=== PATIENT | female | born 1950 | race African-American/Black ===

== ENCOUNTER 2020-01-25 16:29 | Emergency (ER) | payer SELFPAY ==
--- NOTE | 2020-01-25 17:35 | ER Document Report ---
HPI - HPI Time Seen by Provider: 01/25/20 17:31 Course - Vital Signs Vital signs: Temp Pulse Resp BP Pulse Ox 98.0 F 108 H 20 147/93 H 95 01/25/20 16:38 01/25/20 16:38 01/25/20 16:38 01/25/20 16:38 01/25/20 16:38
--- NOTE | 2020-01-25 17:39 | ER Document Report ---
ED Medical Screen (RME) - General Chief Complaint: Congestion Stated Complaint: CONGESTION Time Seen by Provider: 01/25/20 17:31 - HPI Notes: 01/25/20 18:07 69-year-old female presents to the emergency room with feeling like her heart is been skipping after she stopped drinking a sixpack of 20 ounces of Pepsi last week, reports congestion and pressure in her nose of and difficulty breathing she has to wear her mask while working. patient denies having a history of irregular heart rate, palpitations. Non-smoker, no history of asthma or COPD. Denies any chest pain. patient states that it is hard for her to breathe while she is wearing a mask at work. Patient states she stopped drinking all caffeine, chocolate and switched to just drinking water 2 weeks ago and states that she has been feeling very "off". No [id number] medications have been tried besides Sudafed. Patient denies any medical problems. I have greeted and performed a rapid initial assessment of this patient. A comprehensive ED assessment and evaluation of the patient, analysis of test results and completion of the medical decision making process will be conducted by additional ED providers. PHYSICAL EXAMINATION: GENERAL: Well-appearing, well-nourished and in no acute distress. HEAD: Atraumatic, normocephalic. CV: Irregularly irregular LUNGS: No respiratory distress Physical Exam - Vital signs Vitals: Temp Pulse Resp BP Pulse Ox 98.0 F 108 H 20 147/93 H 95 01/25/20 16:38 01/25/20 16:38 01/25/20 16:38 01/25/20 16:38 01/25/20 16:38 Course - Vital Signs Vital signs: Temp Pulse Resp BP Pulse Ox 98.0 F 108 H 20 147/93 H 95 01/25/20 16:38 01/25/20 16:38 01/25/20 16:38 01/25/20 16:38 01/25/20 16:38 - Laboratory Result Diagrams: 01/25/20 17:55 01/25/20 17:55
--- NOTE | 2020-01-25 18:01 | EKG REPORT ---
SEVERITY:- ABNORMAL ECG - SINUS TACHYCARDIA PROBABLE LEFT ATRIAL ABNORMALITY LEFT BUNDLE BRANCH BLOCK : Confirmed by: Sav Blake MD 25-Jan-2020 18:00:22
[2020-01-25 18:12] LABS: ABSOLUTE BASOPHILS # (AUTO) 0.1 10^3/uL (0.0-0.2); ABSOLUTE EOSINOPHILS # (AUTO) 0.1 10^3/uL (0.0-0.6); ABSOLUTE LYMPHOCYTES (AUTO) 1.8 10^3/uL (0.5-4.7); ABSOLUTE MONOCYTES (AUTO) 0.6 10^3/uL (0.1-1.4); ABSOLUTE NEUT (AUTO) 5.8 10^3/uL (1.7-8.2); BASOPHILS % (AUTO) 0.8 % (0-2); EOSINOPHILS % (AUTO) 0.7 % (0-6); HEMATOCRIT 42.2 % (36.0-47.0); HEMOGLOBIN 13.8 g/dL (12.0-15.5); MEAN CORPUSCULAR HEMOGLOBIN 28.2 pg (27.0-33.4); MEAN CORPUSCULAR HGB CONC 32.8 g/dL (32.0-36.0); MEAN CORPUSCULAR VOLUME 86 fl (80-97); MONOCYTES % (AUTO) 6.9 % (3-13); PLATELET COUNT 199 10^3/uL (150-450); RED CELL DISTRIBUTION WIDTH 15.3 % (11.5-14.0); SEGMENTED NEUTROPHILS % (AUTO) 69.6 % (42-78); TOTAL CELLS COUNTED % (AUTO) 100 %; WHITE BLOOD COUNT 8.3 10^3/uL (4.0-10.5)
[2020-01-25 18:28] LABS: ALBUMIN 4.6 g/dL (3.5-5.0); ALKALINE PHOSPHATASE 55 U/L (38-126); ANION GAP 11 (5-19); ASPARTATE AMINO TRANSFERASE 48 U/L (14-36); BILIRUBIN,DIRECT 0.3 mg/dL (0.0-0.4); BILIRUBIN,TOTAL 2.3 mg/dL (0.2-1.3); BLOOD UREA NITROGEN 16 mg/dL (7-20); CALCIUM 9.8 mg/dL (8.4-10.2); CARBON DIOXIDE 23 mmol/L (22-30); CHLORIDE 102 mmol/L (98-107); GLUCOSE 154 mg/dL (75-110); PHOSPHORUS 3.5 mg/dL (2.5-4.5); POTASSIUM 4.4 mmol/L (3.6-5.0)
--- NOTE | 2020-01-25 18:29 | ER Document Report ---
ED ENT - General Chief Complaint: Irregular Pulse Stated Complaint: CONGESTION Time Seen by Provider: 01/25/20 17:31 Primary Care Provider: IMANI IVEY MD [ACTIVE STAFF] - Follow up as needed Notes: 69-year-old female with no previous medical problems presents emergency room complaining of sinus congestion, postnasal drip for the past 2 weeks. She denies any fevers. She denies any recent travel. Denies any COVID-19 exposure. States she has been taking some Sudafed with some relief. No known ill contact s. TRAVEL OUTSIDE OF THE [place] IN LAST 30 DAYS: No Past Medical History - General Information source: Patient - Social History Smoking Status: Never Smoker Frequency of alcohol use: None Drug Abuse: None Family History: Reviewed & Not Pertinent Patient has homicidal ideation: No - Medical History Medical History: Negative Review of Systems - Review of Systems Constitutional: No symptoms reported EENT: Nose congestion, Sinus pressure Cardiovascular: No symptoms reported Respiratory: No symptoms reported Gastrointestinal: No symptoms reported Genitourinary: No symptoms reported Musculoskeletal: No symptoms reported Skin: No symptoms reported Hematologic/Lymphatic: No symptoms reported Neurological/Psychological: No symptoms reported -: Yes All other systems reviewed and negative Physical Exam - Vital signs Vitals: Temp Pulse Resp BP Pulse Ox 98.0 F 108 H 20 147/93 H 95 01/25/20 16:38 01/25/20 16:38 01/25/20 16:38 01/25/20 16:38 01/25/20 16:38 - General General appearance: Appears well, Alert In distress: Mild - HEENT Head: Normocephalic Eyes: Normal Conjunctiva: Normal Eyelashes: Normal Pupils: PERRL Ears: Normal External canal: Normal Tympanic membrane: Retracted, Other - Bilateral tympanic membranes are dull and retracted with clear fluid noted behind the tympanic membranes bilaterally Sinus: Frontal, Tenderness Nasal: Purulent discharge, Swelling Mouth/Lips: Normal Pharynx: Post nasal drainage. No: Erythema Neck: Normal, Supple. No: Lymphadenopathy, Meningismus - Respiratory Respiratory status: No respiratory distress Chest status: Nontender Breath sounds: Normal Chest palpation: Normal - Cardiovascular Rhythm: Tachycardia Heart sounds: Normal auscultation Murmur: No Friction rub: No - Neurological Neuro grossly intact: Yes Cognition: Normal Orientation: AAOx4 [place] Coma Scale Eye Opening: Spontaneous [place] Coma Scale Verbal: Oriented [place]ie Coma Scale Motor: Obeys Commands [place] Coma Scale Total: 15 Speech: Normal Motor strength normal: LUE, RUE, LLE, RLE Sensory: Normal - Skin Skin Temperature: Warm Skin Moisture: Dry Skin Color: Normal Course - Re-evaluation Re-evalutation: 01/25/20 19:54 Patient is resting comfortably she is afebrile, she is nontoxic-appearing, reviewed all lab results with patient. Patient did not initially tell provider she has been having palpitations that started last week after drinking several Pepsi's. Also has noticed palpitations after taking Sudafed. Currently denies any palpitations, chest pain, no shortness of breath, discussed EKG findings with patient. Patient denies any chest pain, no shortness of breath, no difficulty breathing. Will treat for acute sinusitis as discussed. She is to follow-up outpatient with a primary care physician on-call physician was provided. Patient was given strict return to the emergency room guidelines. Return for any new or worsening symptoms. All questions were answered. Patient verbalized understanding and agrees with plan of care. 01/26/20 01:15 - Vital Signs Vital signs: Temp Pulse Resp BP Pulse Ox 97.9 F 94 17 140/88 H 97 01/25/20 20:23 01/25/20 20:23 01/25/20 20:23 01/25/20 20:23 01/25/20 20:23 - Laboratory Result Diagrams: 01/25/20 17:55 01/25/20 17:55 Laboratory results interpreted by me: 01/25/20 01/25/20 17:55 17:55 RDW 15.3 H Sodium 135.6 L Glucose 154 H Total Bilirubin 2.3 H AST 48 H ALT 42 H - EKG Interpretation by Me Rate: Tachycardia [place]/QRS: LBBB Additional EKG results interpreted by me: 01/25/20 18:28 EKG was interpreted by ER physician Dr. Mayers EKG was interpreted by ER physician Dr. Mayers No acute STEMI Left bundle branch block Discharge - Discharge Clinical Impression: Palpitations, Left bundle branch block Acute sinusitis Qualifiers: Sinusitis location: frontal Recurrence: non-recurrent Qualified Code(s): J01.10 - Acute frontal sinusitis, unspecified Condition: Stable Disposition: HOME, SELF-CARE Instructions: Palpitations (Irregular or Rapid Heartrate) ([facility]), Sinusitis ([facility]) Additional Instructions: Take medications as prescribed. Outpatient follow-up with a primary care physician for palpitations and if not improving in 2 to 3 days. Return to the emergency room for any new or worsening symptoms. Prescriptions: Amoxicillin/Potassium Clav [Augmentin 875-125 Tablet] 1 tab PO Q12 #14 tablet Fluticasone Propionate [Flonase Nasal [place] 50 Mcg/[place] 16 gm] 2 sprays NASL DAILY 7 Days #1 inhaler Referrals: IMANI IVEY MD [ACTIVE STAFF] - Follow up as needed
[2020-01-25 20:25] VITALS: BP 140/88
== END 2020-01-25 20:32 | disposition home or self-care (01) ==
LOC: ER 16:29
DX: J01.10 Acute frontal sinusitis, unspecified (principal); R09.81 Nasal congestion; R09.82 Postnasal drip; R00.2 Palpitations; I44.7 Left bundle-branch block, unspecified; R00.0 Tachycardia, unspecified
CPT/HCPCS: 36415; 80053; 83735; 84100; 84443; 85025; 87070; 87880; 93005; 93010; 99283

== ENCOUNTER 2020-03-16 06:55 | Emergency (ER) | payer SELFPAY ==
--- NOTE | 2020-03-16 09:22 | ER Document Report ---
ED General - General Chief Complaint: Decreased Appetite Stated Complaint: LOSS OF TASTE AND APPETITE Time Seen by Provider: 03/16/20 08:59 Notes: CHIEF COMPLAINT: Sinus congestion, loss of taste HPI: 69-year-old female who reports no medical problems presenting for reevaluation of sinus congestion and loss of taste. Patient has had symptoms for approximately a month. States that she came to the emergency department and was told she had a sinus infection took the Augmentin but developed hives so stopped the medication after several days. Has been using Sudafed for sinus congestion but reports that 2 weeks ago she lost her sense of taste although she can smell and no longer has an appetite because of the loss of taste. Denies chest pain shortness of breath. Denies abdominal pain nausea vomiting. Denies dysuria. Has not had fever ROS: See HPI - all other systems were reviewed and are otherwise negative Constitutional: no fever Eyes: no drainage, no blurred vision ENT: + runny nose, no sore throat, positive loss of taste ([place]) Cardiovascular: no chest pain Resp: no SOB, no cough GI: no vomiting, no diarrhea, no abdominal pain : no dysuria Integumentary: no rash Allergy: no hives Musculoskeletal: no extremity pain or swelling Neurological: no numbness/tingling, no weakness MEDICATIONS: I agree with the patient medications as charted by the RN. ALLERGIES: I agree with the allergies as charted by the RN. PAST MEDICAL HISTORY/PAST SURGICAL HISTORY: Reviewed and agree as charted by RN. SOCIAL HISTORY: Reviewed and agree as charted by RN. FAMILY HISTORY: No significant familial comorbid conditions directly related to patient complaint EXAM: Reviewed vital signs as charted by RN. CONSTITUTIONAL: Alert and oriented and responds appropriately to questions. Well-appearing; well-nourished HEAD: Normocephalic; atraumatic EYES: PERRL; Conjunctivae clear, sclerae non-icteric ENT: normal nose; no rhinorrhea; moist mucous membranes; pharynx without lesions noted, no uvula edema or deviation, no tonsillar hypertrophy, phonation normal NECK: Supple without meningismus; non-tender; no cervical lymphadenopathy, no masses CARD: RRR; no murmurs, no clicks, no rubs, no gallops; symmetric distal pulses RESP: Normal chest excursion without splinting or tachypnea; breath sounds clear and equal bilaterally; no wheezes, no rhonchi, no rales, pulse oximetry ABD/GI: Normal bowel sounds; non-distended; soft, non-tender, no rebound, no guarding; no palpable organomegaly or masses. BACK: The back appears normal and is non-tender to palpation, there is no CVA tenderness EXT: Normal ROM in all joints; non-tender to palpation; no cyanosis, no effusions, no edema SKIN: Normal color for age and race; warm; dry; good turgor; no acute lesions noted NEURO: Moves all extremities equally; Motor and sensory function intact PSYCH: The patient's mood and manner are appropriate. Grooming and personal hygiene are appropriate. MDM: 69-year-old female presenting with loss of taste over the last 2 weeks with continued sinus congestion. I did review prior records she had normal lab work including TSH. Given patient's age I will obtain CT of the head to ensure that there is no mass or other abnormality. Will obtain COVID screen given loss of taste TRAVEL OUTSIDE OF THE [place] IN LAST 30 DAYS: No - Related Data Allergies/Adverse Reactions: No Known Allergies Allergy (Verified 03/16/20 09:14) Past Medical History - Social History Smoking Status: Unknown if Ever Smoked Family History: Reviewed & Not Pertinent Physical Exam - Vital signs Vitals: Temp Pulse Resp BP 97.8 F 110 H 16 139/81 H 03/16/20 09:09 03/16/20 09:09 03/16/20 09:09 03/16/20 09:09 Course - Re-evaluation Re-evalutation: 03/16/20 11:30 CT imaging does not show any acute findings including significant inflammatory changes through the sinuses. Patient complains symptomatically will place her on Flonase nasal spray to help dry her sinuses. We will give her a one-time dose of Decadron here. Given the loss of taste complaint she will be a person under investigation for COVID-19. She will self quarantine at home. She will be given a referral to neurology for follow-up - Vital Signs Vital signs: Temp Pulse Resp BP Pulse Ox 97.8 F 110 H 16 139/81 H 03/16/20 09:09 03/16/20 09:09 03/16/20 09:09 03/16/20 09:09 Discharge - Discharge Clinical Impression: [place], Person under investigation for COVID-19 Condition: Stable Disposition: HOME, SELF-CARE Additional Instructions: Use the Flonase nasal spray to help dry out the sinuses. You were given a one- time dose of a long-acting steroid to also help with your sinus congestion and discomfort. CT imaging today did not show any acute findings that are actionable, follow-up the loss of taste with neurology call for appointment. You are considered a person under investigation for COVID-19 at this time self quarantine at home until you have a negative result. These take 2 to 5 days and you should hear from someone at the hospital about your results Prescriptions: Fluticasone Propionate [Flonase Nasal [place] 50 Mcg/[place] 16 gm] 1 spray NASL Q12 #1 inhaler Referrals: BLANCA DEL CASTILLO MD [COMMUNITY BASED STAFF] - Follow up as needed
--- NOTE | 2020-03-16 11:20 | RADIOLOGY REPORT (SQ) ---
EXAM DESCRIPTION: CT HEAD WITHOUT IMAGES COMPLETED DATE/TIME: 03/16/2020 11:11 am REASON FOR STUDY: loss of taste, sinus congestion COMPARISON: None. TECHNIQUE: Axial images acquired through the brain without intravenous contrast. Images reviewed wi th bone, brain and subdural windows. Additional sagittal and coronal reconstructions were generated. Images stored on PACS. All CT scanners at this facility use dose modulation, iterative reconstruction, and/or weight based d osing when appropriate to reduce radiation dose to as low as reasonably achievable (ALARA). [facility]: Dose Right [facility]: CareDose [facility]: Dose Right [facility]: Teradose 4D [facility]: Gobble RADIATION DOSE: CT Rad equipment meets quality standard of care and radiation dose reduction techniq ues were employed. CTDIvol: 53.2 mGy. DLP: 1124 mGy-cm. mGy. LIMITATIONS: None. FINDINGS: VENTRICLES: Prominent. CEREBRUM: No masses. No hemorrhage. No midline shift. Areas of low density in the white matter mos t likely due to chronic micro-vascular ischemic change. No evidence for acute infarction. CEREBELLUM: No masses. No hemorrhage. No alteration of density. No evidence for acute infarction. EXTRAAXIAL SPACES: Mild age-related involutional change. No fluid collections. No masses. ORBITS AND GLOBE: No intra- or extraconal masses. Normal contour of globe without masses. CALVARIUM: No fracture. PARANASAL SINUSES: No fluid or mucosal thickening. SOFT TISSUES: No mass or hematoma. OTHER: No other significant finding. IMPRESSION: MILD CHRONIC CHANGES OF ATROPHY AND MICROVASCULAR ISCHEMIA. NO ACUTE PROCESS. EVIDENCE OF ACUTE STROKE: NO. TECHNICAL DOCUMENTATION: JOB ID: [id number] Quality ID # [id number]: Final reports with documentation of one or more dose reduction techniques (e.g., Au tomated exposure control, adjustment of the mA and/or kV according to patient size, use of iterative reconstruction technique) 2010 [employer]- All Rights Reserved Reading location - IP/workstation name: [email or web address]
[2020-03-16] MEDS ORDERED: DEXAMETHASONE 4 MG TABLET PO ONE (11:33)
[2020-03-16 12:11] VITALS: BP 99/66
== END 2020-03-16 12:11 | disposition home or self-care (01) ==
LOC: ER 06:55
DX: R43.2 Parageusia (principal); R63.0 Anorexia; R43.9 Unspecified disturbances of smell and taste; R09.81 Nasal congestion; R09.89 Other specified symptoms and signs involving the circulatory and respiratory systems; Z20.828 Contact with and (suspected) exposure to other viral communicable diseases; Z79.899 Other long term (current) drug therapy
CPT/HCPCS: 99284; 87635; 70450; J8540; C9803

== ENCOUNTER 2020-05-21 19:08 | Inpatient (IN) | payer SELFPAY ==
--- NOTE | 2020-05-21 19:51 | ER Document Report ---
ED Medical Screen (RME) - General Chief Complaint: Nausea Stated Complaint: NAUSEA,LACK OF APPETITE Time Seen by Provider: 05/21/20 19:37 TRAVEL OUTSIDE OF THE [place] IN LAST 30 DAYS: No - HPI Notes: 05/21/20 19:48 69-year-old female to the emergency department with granddaughter with complaints of progressively worsening nausea, lack of appetite, weakness, shortness of breath since Friday. On she saw physician for the first time in a very long time. She saw Dr. Wilks at [facility]. She was found to have a BNP of 1800 and a TSH of 8. She was also found to have a bilirubin of almost 4. She also was found to have a UTI she has not seen a physician in a very long time. She was started on Cipro for UTI, Lasix 40 mg for presumed heart failure, potassium. She was also supposed to excelsior picker Synthroid for hypothyroidism but has not begun to take it. Granddaughter states that since Friday she has not been eating anything. She states that she has been nauseated and dry heaving. She also states that she feels very shaky when she tries to stand. Granddaughter reports a significant weight loss in the past several months. On brief medical screening exam, patient is cachectic. She is actively dry heaving. She has no pitting edema on her legs. She has a blood pressure of 90 over 50s. I have made charge aware of the patient and asked for immediate bedding. I performed a brief medical screening exam on the patient determined that the patient needs further evaluation and management by main side provider. I have placed initial orders to help expedite care. - Related Data Allergies/Adverse Reactions: Penicillins Adverse Reaction (Verified 05/21/20 19:36) Physical Exam - Vital signs Vitals: Temp Pulse Resp BP Pulse Ox 97.9 F 97 18 90/59 L 98 05/21/20 19:38 05/21/20 19:38 05/21/20 19:38 05/21/20 19:38 05/21/20 19:38 Course - Vital Signs Vital signs: Temp Pulse Resp BP Pulse Ox 97.9 F 97 18 90/59 L 98 05/21/20 19:38 05/21/20 19:38 05/21/20 19:38 05/21/20 19:38 05/21/20 19:38
[2020-05-21] MEDS ORDERED: NORMAL SALINE 1000 ML 1,000 ML IV ONE (19:55)
[2020-05-21] MEDS ORDERED: NORMAL SALINE 500 ML IV ONE (20:16)
[2020-05-21] MEDS ORDERED: ONDANSETRON HCL INJ/PF 4 MG/2 ML SDV IV ONE (20:16)
--- NOTE | 2020-05-21 20:21 | ER Document Report ---
ED General - General Chief Complaint: Nausea/Vomiting Stated Complaint: NAUSEA,LACK OF APPETITE Time Seen by Provider: 05/21/20 19:37 Notes: Patient is a 69 year old female who comes emergency department for chief complaint of gradually worsening progressive weakness, loss of appetite, nausea, and some shortness of breath. Symptoms have been severely worsening over the past 4 to 5 days. Patient was taken by her daughter on to see Dr. Wilks, laboratory tests came back Friday and prescriptions for Cipro for UTI and Lasix for elevated BNP were prescribed along with Synthroid. Patient previously had been on no medications. Patient reports a history of cervical dysplasia and had a partial hysterectomy but she denies any other medical history, she denies any daily medications otherwise. No fever, chest pain, headache, or abdominal pain reported but patient states she feels like she "just cannot eat" and she has been losing weight for the past several months. Patient was vomiting in triage. TRAVEL OUTSIDE OF THE [place] IN LAST 30 DAYS: No - Related Data Allergies/Adverse Reactions: Penicillins Adverse Reaction (Verified 05/21/20 19:36) Past Medical History - General Information source: Patient - Social History Smoking Status: Former Smoker Frequency of alcohol use: None Drug Abuse: None Lives with: Family Family History: None Patient has homicidal ideation: No Past Surgical History: Reports: Hx Hysterectomy - Partial Review of Systems - Review of Systems Constitutional: See HPI EENT: No symptoms reported Cardiovascular: No symptoms reported Respiratory: No symptoms reported Gastrointestinal: See HPI Genitourinary: No symptoms reported Female Genitourinary: No symptoms reported Musculoskeletal: No symptoms reported Skin: No symptoms reported Hematologic/Lymphatic: No symptoms reported Neurological/Psychological: No symptoms reported Physical Exam - Vital signs Vitals: Temp Pulse Resp BP Pulse Ox 97.9 F 97 18 90/59 L 98 05/21/20 19:38 05/21/20 19:38 05/21/20 19:38 05/21/20 19:38 05/21/20 19:38 - Notes Notes: GENERAL: Frail and ill-appearing. Sluggish but still responsive and appropriate HEAD: Normocephalic, atraumatic. EYES: Pupils equal, round, and reactive to light. Extraocular movements intact. ENT: Oral mucosa moist, tongue midline. Oropharynx unremarkable. Airway patent. NECK: Full range of motion. Supple. Trachea midline. No lymphadenopathy. LUNGS: Clear to auscultation bilaterally, no wheezes, rales, or rhonchi. No respiratory distress. Non-tender chest wall. HEART: Regular rate and rhythm. No murmur ABDOMEN: Minimal generalized tenderness in the mid upper abdomen, nonspecific, no guarding. Lower abdomen unremarkable. EXTREMITIES: Moves all 4 extremities spontaneously. No edema, normal radial and dorsalis pedis pulses bilaterally. No cyanosis. BACK: no cervical, thoracic, lumbar midline tenderness. No saddle anesthesia, normal distal neurovascular exam. Moves all extremities in full range of motion. NEUROLOGICAL: Drowsy but still awake and oriented x3. Normal speech. Cranial nerves II through XII grossly intact. Strength 5/5 in all extremities. PSYCH: Normal affect, normal mood. SKIN: Warm, dry, normal turgor. No rashes or lesions noted. Course - Re-evaluation Re-evalutation: Patient is cachectic, ill-appearing, sluggish although she is awake and appropriate. Patient without significant data from medical history because she almost never sees a medical provider. Blood pressure is borderline but she is very small, evaluation is otherwise unremarkable with no overt abdominal tenderness, tachypnea, or signs of distress. CBC nonspecific. Chemistry showing elevated bilirubin with direct of 2.7 and indirect of 5.1. Alk phos and lipase are unremarkable. Patient actually perked up and stated she felt much better after Zofran but she declines pain medication on reevaluation. Urinalysis with ketones probably from starvation but not showing evidence of dehydration. Patient is not in renal failure. Troponin is not elevated but BNP is greater than 8000. Chest x-ray without overt failure, no rales on exam, no history of heart failure previously. Potassium 3.3 and magnesium only 1.4, will begin supplementation. CAT scan performed because of suspicions of obstructive pathology versus cancer, this shows questionable gallbladder, enlarged heart, pleural effusion, but no concerning findings otherwise. Ultrasound performed of the right upper quadrant, shows cholelithiasis and sludge, thickened wall, radiologist comments this could be acute versus chronic cholelithiasis. Discussed with Dr. Walker. 05/22/20 03:[address] Meredith, general surgeon file conversion operator. He states the patient will require medical work-up but he does not believe the patient needs a cholecystectomy now and possibly not even with admission. I specifically asked if patient needs transfer for an ERCP but his recommendation is hospitalist admission. Daughter and patient are very much in agreement with this plan. I discussed with Dr. Gilbert, hospitalist, patient accepted to medical floor full admission. - Vital Signs Vital signs: Temp Pulse Resp BP Pulse Ox 98.1 F 97 27 H 91/67 L 100 05/22/20 01:00 05/21/20 19:38 05/22/20 03:20 05/22/20 03:20 05/22/20 03:20 - Laboratory Result Diagrams: 05/21/20 20:17 05/21/20 20:17 Laboratory results interpreted by me: 05/21/20 05/21/20 05/21/20 20:17 20:17 20:17 RDW 21.0 H Sodium 132.4 L Potassium 3.3 L Chloride 87 L Anion Gap 21 H Creatinine 0.48 L Magnesium 1.4 L Total Bilirubin 5.2 H Direct Bilirubin 2.7 H AST 49 H NT-Pro-B Natriuret Pep 8220 H Lipase 469.1 H TSH Urine Ketones Urine Urobilinogen Leukocyte Esterase Rfl 05/21/20 05/21/20 20:17 21:55 RDW Sodium Potassium Chloride Anion Gap Creatinine Magnesium Total Bilirubin Direct Bilirubin AST NT-Pro-B Natriuret Pep Lipase TSH 5.28 H Urine Ketones 80 H Urine Urobilinogen 4.0 H Leukocyte Esterase Rfl TRACE H - EKG Interpretation by Me Additional EKG results interpreted by me: EKG shows tachycardia at a rate of 104, left axis deviation, left bundle branch block, QTC 500, T wave inversions borderline in V5 and noted in V6, similar compared to prior Discharge - Discharge Clinical Impression: Anorexia, Nausea, Pleural effusion, Weakness, Elevated TSH Cholelithiasis Qualifiers: Cholelithiasis location: gallbladder Cholecystitis presence: with cholecystitis Cholecystitis acuity: unspecified acuity Biliary obstruction: without biliary obstruction Qualified Code(s): K80.10 - Calculus of gallbladder with chronic cholecystitis without obstruction Condition: Stable Disposition: ADMITTED INPATIENT Admitting Provider: Ofelia (Hospitalist) Unit Admitted: Medical Floor
[2020-05-21 20:38] LABS: ABSOLUTE LYMPHOCYTES (AUTO) 0.9 10^3/uL (0.5-4.7); ABSOLUTE MONOCYTES (AUTO) 0.5 10^3/uL (0.1-1.4); ABSOLUTE NEUT (AUTO) 3.6 10^3/uL (1.7-8.2); BASOPHILS % (AUTO) 0.3 % (0-2); EOSINOPHILS % (AUTO) 0.1 % (0-6); HEMATOCRIT 43.1 % (36.0-47.0); HEMOGLOBIN 14.6 g/dL (12.0-15.5); LYMPHOCYTES % (AUTO) 17.6 % (13-45); MEAN CORPUSCULAR HEMOGLOBIN 30.4 pg (27.0-33.4); MEAN CORPUSCULAR HGB CONC 33.9 g/dL (32.0-36.0); MEAN CORPUSCULAR VOLUME 90 fl (80-97); MONOCYTES % (AUTO) 9.9 % (3-13); PLATELET COUNT 161 10^3/uL (150-450); RED BLOOD COUNT 4.81 10^6/uL (3.72-5.28); SEGMENTED NEUTROPHILS % (AUTO) 72.1 % (42-78); TOTAL CELLS COUNTED % (AUTO) 100 %
[2020-05-21 20:43] LABS: INTERNATIONAL RATION (INR) 1.05; PROTHROMBIN TIME 13.9 SEC (11.4-15.4)
[2020-05-21 20:44] LABS: PARTIAL THROMBOPLASTIN TIME 32.3 SEC (23.5-35.8)
--- NOTE | 2020-05-21 20:58 | RADIOLOGY REPORT (SQ) ---
EXAM DESCRIPTION: XR CHEST 1 VIEW COMPLETED DATE/TME: 05/21/2020 20:17 CLINICAL HISTORY: 69 years, Female, weakness COMPARISON: None. NUMBER OF VIEWS: 1 TECHNIQUE: Portable AP upright view of the chest was obtained at 8:29 PM. LIMITATIONS: None. FINDINGS: The heart size is within normal limits for technique. There is minimal linear atelectasis or scarring within the mid lung zones. There is no airspace consolidation. Aortic calcifications are noted. There is no evidence of pleural effusion or pneumothorax. IMPRESSION: No acute abnormality as above. copyright 2010 [employer]- All Rights Reserved
[2020-05-21 21:12] LABS: ALBUMIN 4.2 g/dL (3.5-5.0); ALKALINE PHOSPHATASE 42 U/L (38-126); ASPARTATE AMINO TRANSFERASE 49 U/L (14-36); BILIRUBIN,DIRECT 2.7 mg/dL (0.0-0.4); BILIRUBIN,TOTAL 5.2 mg/dL (0.2-1.3); BLOOD UREA NITROGEN 9 mg/dL (7-20); CALCIUM 9.1 mg/dL (8.4-10.2); CARBON DIOXIDE 24 mmol/L (22-30); CHLORIDE 87 mmol/L (98-107); GLUCOSE 102 mg/dL (75-110); POTASSIUM 3.3 mmol/L (3.6-5.0); TOTAL PROTEIN 7.5 g/dL (6.3-8.2)
[2020-05-21 21:18] LABS: ANION GAP 21 (5-19)
[2020-05-21 21:22] LABS: TROPONIN I 0.019 ng/mL
[2020-05-21 22:14] LABS: APPEARANCE,URINE CLEAR; BILIRUBIN,URINE NEGATIVE (NEGATIVE); COLOR,URINE AMBER; GLUCOSE, URINE NEGATIVE (NEGATIVE); KETONES,URINE 80 mg/dL (NEGATIVE); PROTEIN,URINE NEGATIVE (NEGATIVE); URINE SPECIFIC GRAVITY 1.013
--- NOTE | 2020-05-21 23:48 | RADIOLOGY REPORT (SQ) ---
EXAM DESCRIPTION: CT ABDOMEN PELVIS WITH IV CONTRAST COMPLETED DATE/TME: 05/21/2020 21:26 CLINICAL HISTORY: 69 years, Female, weakness, abd pain, unable to eat COMPARISON: None. TECHNIQUE: Images of the abdomen and pelvis were obtained with 62 mL Omnipaque 350 intravenously. Images stored on PACS. All CT scanners at this facility use dose modulation, iterative reconstruction, and/or weight based dosing when appropriate to reduce radiation dose to as low as reasonably achievable (ALARA). [facility]: Dose Right [facility]: CareDose [facility]: Dose Right [facility]: Teradose 4D [facility]: [employer] LIMITATIONS: None. FINDINGS: Initial images through the lung bases reveal [id number] right and trace left pleural effusions and mild bibasilar atelectasis. There is mild global cardiomegaly. There is fatty infiltration of the liver. More pronounced low-attenuation adjacent to the falciform ligament within the medial left hepatic lobe measuring 2.4 cm is likely due to focal fatty infiltration. The kidneys, adrenals, and spleen appear within normal limits. Pancreas appears relatively atrophic. Gallbladder is dilated/hydropic measuring up to 4.5 cm in caliber. There is cholelithiasis. There is fat stranding adjacent to the gallbladder and a cannot exclude acute cholecystitis. There is no abnormal bowel dilation. The appendix appears within normal limits. There is no free fluid or free air. Patient appears be status post hysterectomy. Arterial calcifications are identified. There is no abdominal aortic aneurysm. There is degenerative change about the spine and there is 5 mm degenerative anterolisthesis of L4 on L5. IMPRESSION: 1. Dilated/hydropic gallbladder with gallstones. There is a mild amount of pericholecystic fat stranding and a cannot exclude cholecystitis. Clinical correlation is recommended. Ultrasound or HIDA scan could be performed as clinically directed. 2. Bilateral pleural effusions and bibasilar atelectasis, greater on the right. Global cardiomegaly. Additional comments are as above. TECHNICAL DOCUMENTATION: Quality ID # 436: Final reports with documentation of one or more dose reduction techniques (e.g., Automated exposure control, adjustment of the mA and/or kV according to patient size, use of iterative reconstruction technique) copyright 2011 [employer]- All Rights Reserved
[2020-05-22] MEDS ORDERED: ONDANSETRON HCL INJ/PF 4 MG/2 ML SDV IV ONE (00:58)
--- NOTE | 2020-05-22 01:05 | RADIOLOGY REPORT (SQ) ---
EXAM DESCRIPTION: US ABDOMEN LIMITED COMPLETED DATE/TME: 05/21/2020 23:49 CLINICAL HISTORY: 69 years Female eval gallbladder, abnormal CT COMPARISON: CT 05/21/2020. TECHNIQUE: Transabdominal grayscale imaging performed to evaluate the abdomen. FINDINGS: Aorta appears within normal limits. Small right effusion. Heterogeneous liver. Echogenic focus in the liver likely reflecting a focal area of fatty infiltration along the falciform ligament. Patent hepatopedal portal vein. Unremarkable right kidney without hydronephrosis. Distended gallbladder stones and sludge are noted in the gallbladder. Wall is thickened measuring 4 mm. Common duct measures 3 mm. IMPRESSION: Sludge and cholelithiasis with thickened gallbladder wall which may reflect acute or chronic cholecystitis Negative Reyna sign Right pleural effusion Probable focus of fatty infiltration along the falciform ligament
[2020-05-22] MEDS ORDERED: LEVOFLOXACIN 750 MG/D5W RTU 750 MG/150 ML RTUPB IV ONE (01:57)
[2020-05-22] MEDS ORDERED: METRONIDAZOLE 500 MG/NS RTU 500 MG/100 ML RTUPB IV ONE (01:58)
[2020-05-22 02:37] LABS: FREE T3 2.88 pg/mL (2.77-5.27); FREE T4 (FREE THYROXINE) 2.15 ng/dL (0.78-2.19)
[2020-05-22] MEDS ORDERED: MAGNESIUM HYDROXIDE SUSP 30 ML UDCUP PO PRN (03:11)
[2020-05-22] MEDS ORDERED: MAG HYDROX/AL HYDROX/SIMETH SUSP 30 ML UDCUP PO PRN (03:11)
[2020-05-22] MEDS ORDERED: ACETAMINOPHEN 650 MG SUPP.RECT PR PRN (03:17)
[2020-05-22] MEDS ORDERED: ACETAMINOPHEN SOLN 325 MG/10.15 ML UDCUP PO PRN (03:17)
[2020-05-22] MEDS ORDERED: LORAZEPAM INJ 2 MG/1 ML VIAL IV PRN (03:19)
[2020-05-22] MEDS ORDERED: MORPHINE SULFATE 10 MG/ML INJ IV PRN (03:19)
[2020-05-22] MEDS ORDERED: GUAIFENESIN SYRP 200 MG/10 ML UDC PO PRN (03:19)
[2020-05-22] MEDS ORDERED: POTASSI CL 20 MEQ/50 ML RIDER 20 MEQ/50 ML RTUPB IV ONE (03:26)
[2020-05-22] MEDS: MAGNESIUM SULFATE/D5W 1 GM/100 ML RTUPB IV SCH ×4 (04:24→23:20)
--- NOTE | 2020-05-22 05:17 | PDOC H&P ---
History of Present Illness Admission Date/PCP: 05/22/2020 02:33 TANNER VALLE MD Patient complains of: Weight loss History of Present Illness: TAVO BETANCOURT is a 69 year old female who presented to the emergency room with a 4-month history of weight loss. The patient and her daughter admit that she began having sinus congestion and postnasal drainage with decreased sense of smell and taste in January of this year. With the decreased sense of smell and taste the patient has lost her appetite and has been gradually losing weight, 22 kg (~30% of her total body mass) over the last 3 months with gradually worsening generalized weakness. Over the last 4 days the patient has been worse with complaints of nausea when she tries to swallow any pills or other solids, claiming they get stuck and she gags until she has regurgitated them. She remains able to swallow water and other liquids without difficulty. She denies other associated or accompanying signs and symptoms. She denies prior similar episodes. She has not identified any aggravating or ameliorating factors for her weight loss. In the emergency room she was found to have mild hypokalemia, mild hyponatremia and mild hypomagnesemia as well as a mildly elevated TSH and a markedly elevated BNP. She was also noted to have moderate hyperbilirubinemia. A CT scan of the abdomen and pelvis demonstrated cardio megaly with bilateral pleural effusions and a hydropic gallbladder with cholelithiasis. Patient was subsequently admitted to the hospital for further evaluation and treatment. Past Medical History Cardiac Medical History: Denies: Atrial Fibrillation, Coronary Artery Disease, DVT, Hyperlipidema, Hypertension, Pulmonary Embolism Pulmonary Medical History: Denies: Asthma, Chronic Obstructive Pulmonary Disease (COPD) EENT Medical History: Denies: Cataracts, Ears - Hearing aids Neurological Medical History: Denies: Hemorrhagic CVA, Ischemic CVA, Seizures Endocrine Medical History: Denies: Diabetes Mellitus Type 1, Diabetes Mellitus Type 2, Hyperthyroidism, Hypothyroidism, Obesity Renal/ Medical History: Denies: Chronic Kidney Disease, Nephrolithiasis Malignancy Medical History: Reports: None GI Medical History: Denies: Cirrhosis, Hepatitis, Peptic Ulcer Disease Musculoskeltal Medical History: Denies: Arthritis, Gout Skin Medical History: Denies: Eczema, Psoriasis Psychiatric Medical History: Denies: Alcohol Dependency, Substance Abuse, Tobacco Dependency Traumatic Medical History: Reports: None Hematology: Denies: Anemia, Bleeding Tendencies Infectious Medical History: Reports: None Past Surgical History Past Surgical History: Reports: Hysterectomy - Partial Social History Information Source: Patient, Relative Lives with: Family Smoking Status: Former Smoker Electronic Cigarette use?: No Frequency of Alcohol Use: None Hx Recreational Drug Use: No Drugs: None Hx Prescription Drug Abuse: No - Advance Directive Resuscitation Status: Full Code Surrogate healthcare decision maker:: Graciela Whitten Family History Family History: denies: CAD, DM, Hypertension, Malignancy Parental Family History Reviewed: Yes Children Family History Reviewed: No Sibling(s) Family History Reviewed.: Yes Medication/Allergy Home Medications: Amoxicillin/Potassium Clav [Augmentin 875-125 Tablet] 1 tab PO Q12 #14 tablet 01/25/20 Fluticasone Propionate [Flonase Nasal [place] 50 Mcg/[place] 16 gm] 2 sprays NASL DAILY 7 Days #1 inhaler 01/25/20 Fluticasone Propionate [Flonase Nasal [place] 50 Mcg/[place] 16 gm] 1 spray NASL Q12 #1 inhaler 03/16/20 Allergies/Adverse Reactions: Penicillins Adverse Reaction (Verified 05/21/20 19:36) Review of Systems Constitutional: PRESENT: as per HPI, anorexia, weight loss. ABSENT: chills, fever(s) Eyes: ABSENT: visual disturbances, other - Eye pain Ears: ABSENT: hearing changes, other - Ear pain Nose, Mouth, and Throat: ABSENT: headache(s), sore throat Cardiovascular: ABSENT: chest pain, palpitations Respiratory: ABSENT: cough, dyspnea Gastrointestinal: PRESENT: dysphagia, nausea, vomiting. ABSENT: abdominal pain, constipation, diarrhea Genitourinary: ABSENT: dysuria, hematuria Musculoskeletal: ABSENT: back pain, joint swelling Integumentary: ABSENT: pruritus, rash Neurological: ABSENT: confusion, convulsions, focal weakness, memory loss, syncope Psychiatric: ABSENT: anxiety, depression Endocrine: ABSENT: cold intolerance, heat intolerance Hematologic/Lymphatic: ABSENT: easy bleeding, easy bruising Allergic/Immunologic: ABSENT: seasonal rhinorrhea Physical Exam Vital Signs: Temp Pulse Resp BP Pulse Ox 98.1 F 97 22 H 100/64 99 05/22/20 01:00 05/21/20 19:38 05/22/20 01:00 05/22/20 01:00 05/22/20 01:00 Intake & Output 11/08/0905/21/20 05/22/20 00:59 23:59 23:59 Intake Total Balance Weight General appearance: PRESENT: no acute distress, cooperative, thin Head exam: PRESENT: atraumatic, normocephalic Eye exam: PRESENT: conjunctiva pink, scleral icterus. ABSENT: conjunctival injection Ear exam: PRESENT: normal external ear exam. ABSENT: bleeding, drainage Mouth exam: PRESENT: dry mucosa, neck supple Neck exam: ABSENT: thyromegaly, tracheal deviation Respiratory exam: PRESENT: clear to auscultation jorge l, symmetrical, unlabored Cardiovascular exam: PRESENT: RRR. ABSENT: clicks, gallop, rubs Pulses: PRESENT: normal radial pulses, normal dorsalis pedis pul Vascular exam: PRESENT: normal capillary refill. ABSENT: pallor GI/Abdominal exam: PRESENT: normal bowel sounds, soft. ABSENT: tenderness Rectal exam: PRESENT: deferred Extremities exam: ABSENT: joint swelling, pedal edema Musculoskeletal exam: ABSENT: deformity, dislocation Neurological exam: PRESENT: alert, oriented to person, oriented to place, oriented to time, oriented to situation, CN II-XII grossly intact. ABSENT: motor sensory deficit Psychiatric exam: PRESENT: appropriate affect, normal mood Skin exam: PRESENT: dry, intact, jaundice, warm. ABSENT: rash, urticaria Results Laboratory Results: 05/21/20 20:17 05/21/20 20:17 05/21/20 05/21/20 05/21/20 20:17 20:17 20:17 WBC 5.0 RBC 4.81 Hgb 14.6 Hct 43.1 MCV 90 MCH 30.4 MCHC 33.9 RDW 21.0 H Plt Count 161 Seg Neutrophils % 72.1 Sodium 132.4 L Potassium 3.3 L Chloride 87 L Carbon Dioxide 24 Anion Gap 21 H BUN 9 Creatinine 0.48 L Est GFR ( Amer) > 60 Glucose 102 Lactic Acid Calcium 9.1 Magnesium 1.4 L Total Bilirubin 5.2 H AST 49 H Alkaline Phosphatase 42 Total Protein 7.5 Albumin 4.2 Lipase 469.1 H TSH 5.28 H Urine Color Urine Appearance Urine pH Ur Specific [place] Urine Protein Urine Glucose (UA) Urine Ketones Urine Blood Urine RBC (Auto) 05/21/20 05/21/20 20:17 21:55 WBC RBC Hgb Hct MCV MCH MCHC RDW Plt Count Seg Neutrophils % Sodium Potassium Chloride Carbon Dioxide Anion Gap BUN Creatinine Est GFR ( Amer) Glucose Lactic Acid 2.0 Calcium Magnesium Total Bilirubin AST Alkaline Phosphatase Total Protein Albumin Lipase TSH Urine Color [place] Urine Appearance CLEAR Urine pH 6.0 Ur Specific [place] 1.013 Urine Protein NEGATIVE Urine Glucose (UA) NEGATIVE Urine Ketones 80 H Urine Blood NEGATIVE Urine RBC (Auto) 0 05/21/20 20:17 Troponin I 0.019 NT-Pro-B Natriuret Pep 8220 H Impressions: Chest X-Ray 05/21/20 20:17 IMPRESSION: No acute abnormality as above. copyright 2010 [employer]- All Rights Reserved Abdomen/Pelvis CT 05/21/20 21:26 IMPRESSION: 1. Dilated/hydropic gallbladder with gallstones. There is a mild amount of pericholecystic fat stranding and a cannot exclude cholecystitis. Clinical correlation is recommended. Ultrasound or HIDA scan could be performed as clinically directed. 2. Bilateral pleural effusions and bibasilar atelectasis, greater on the right. Global cardiomegaly. Additional comments are as above. TECHNICAL DOCUMENTATION: Quality ID # 436: Final reports with documentation of one or more dose reduction techniques (e.g., Automated exposure control, adjustment of the mA and/or kV according to patient size, use of iterative reconstruction technique) copyright 2010 [employer]- All Rights Reserved Abdomen Ultrasound 05/21/20 23:49 IMPRESSION: Sludge and cholelithiasis with thickened gallbladder wall which may reflect acute or chronic cholecystitis Negative Reyna sign Right pleural effusion Probable focus of fatty infiltration along the falciform ligament Assessment and Plan - Diagnosis (1) Weight loss Is this a current diagnosis for this admission?: Yes (2) Anorexia Is this a current diagnosis for this admission?: Yes (3) Dysphagia Qualifiers: Dysphagia type: esophageal phase Qualified Code(s): R13.10 - Dysphagia, un specified Is this a current diagnosis for this admission?: Yes (4) Dysgeusia Is this a current diagnosis for this admission?: Yes (5) Cardiomegaly Is this a current diagnosis for this admission?: Yes (6) Elevated brain natriuretic peptide (BNP) level Is this a current diagnosis for this admission?: Yes (7) Pleural effusion Is this a current diagnosis for this admission?: Yes (8) Cholelithiasis Qualifiers: Cholelithiasis location: gallbladder Cholecystitis presence: with cholecystitis Cholecystitis acuity: unspecified acuity Biliary obstruction: without biliary obstruction Qualified Code(s): K80.10 - Calculus of gallbladder with chronic cholecystitis without obstruction Is this a current diagnosis for this admission?: Yes (9) Weakness Is this a current diagnosis for this admission?: Yes (10) Elevated TSH Is this a current diagnosis for this admission?: Yes - Plan Summary Summary: Patient will be admitted to the medical floor where she will receive routine supportive and symptomatic cares. A gastroenterology consultation will be obtained with Dr. Gillespie as soon as his services will be available (May 23). An echocardiogram will be performed. A CT scan of the chest with special attention to the esophagus will be obtained. A speech therapy consultation for evaluation of the patient's dysphagia will be obtained. A case management consultation will be obtained. A registered dietitian consultation will be obtained. Patient will receive IV Ativan 1 mg every 4 hours as needed for anxiety or restlessness. She received morphine sulfate 2 to 4 mg IV every 2 hours as needed pain. Additional laboratory and/or radiographic evaluations will be obtained as needed. - Time Time Spent with patient: 15-24 minutes Medications reviewed and adjusted accordingly: Yes Anticipated Discharge Disposition: Home with Home Health Anticipated Discharge Timeframe: Undetermined - Inpatient Certification Based on my medical assessment, after consideration of the patient's comorbidities, presenting symptoms, or acuity I expect that the services needed warrant INPATIENT care.: Yes I certify that my determination is in accordance with my understanding of Medicare's requirements for reasonable and necessary INPATIENT services [42 CFR 412.3e].: Yes Medical Necessity: Need Close Monitoring Due to Risk of Patient Decompensation, Risk of Diagnosis Which Will Require Inpatient Eval/Care/Monitoring
[2020-05-22] MEDS: HEPARIN SOD (PORCINE) 5,000 UNIT/ML 1 ML VIAL SUBCUT SCH ×3 (05:35→21:39)
--- NOTE | 2020-05-22 06:18 | EKG REPORT ---
SEVERITY:- ABNORMAL ECG - SINUS TACHYCARDIA LEFT BUNDLE BRANCH BLOCK : Confirmed by: Sav Blake MD 22-May-2020 06:18:34
[2020-05-22] MEDS: METOCLOPRAMIDE HCL INJ/PF 10 MG/2 ML SDV IV SCH ×4 (10:07→21:38)
[2020-05-22] MEDS: DOCUSATE SODIUM 100 MG/10 ML UDC PO SCH ×2 (10:07→10:20)
[2020-05-22] MEDS: PANTOPRAZOLE SODIUM 40 MG VIAL IV SCH ×2 (10:08→21:38)
--- NOTE | 2020-05-22 12:50 | PDOC CONSULTATION ---
Consultation Consult Date: 05/22/20 Provider Consulted: GRAHAM BAUTISTA Consult reason:: dysphagia and weight loss History of Present Illness Admission Date/PCP: 05/22/20 02:39 History of Present Illness: TAVO BETANCOURT is a 69 year old female asked to see the patient for progressive solid food dysphagia associated with weight loss patient states liquids are ok there is no hematemesis patient says no nausea or vomiting has not smoked in the past patient says has lost appetite as well barium swallow in progress denies any nocturnal regurgitation Past Medical History Cardiac Medical History: Denies: Atrial Fibrillation, Coronary Artery Disease, DVT, Hyperlipidema, Hypertension, Pulmonary Embolism Pulmonary Medical History: Denies: Asthma, Chronic Obstructive Pulmonary Disease (COPD) EENT Medical History: Denies: Cataracts, Ears - Hearing aids Neurological Medical History: Denies: Hemorrhagic CVA, Ischemic CVA, Seizures Endocrine Medical History: Denies: Diabetes Mellitus Type 1, Diabetes Mellitus Type 2, Hyperthyroidism, Hypothyroidism, Obesity Renal/ Medical History: Denies: Chronic Kidney Disease, Nephrolithiasis Malignancy Medical History: Reports: None GI Medical History: Denies: Cirrhosis, Hepatitis, Peptic Ulcer Disease Musculoskeltal Medical History: Denies: Arthritis, Gout Skin Medical History: Denies: Eczema, Psoriasis Psychiatric Medical History: Denies: Alcohol Dependency, Depression, Substance Abuse, Tobacco Dependency Traumatic Medical History: Reports: None Hematology: Denies: Anemia, Bleeding Tendencies Infectious Medical History: Reports: None Past Surgical History Past Surgical History: Reports: Hysterectomy - Partial Social History Lives with: Family Smoking Status: Former Smoker Electronic Cigarette use?: No Frequency of Alcohol Use: None Hx Recreational Drug Use: No Drugs: None Hx Prescription Drug Abuse: No - Advance Directive Resuscitation Status: Full Code Family History Family History: denies: CAD, DM, Hypertension, Malignancy Parental Family History Reviewed: Yes Children Family History Reviewed: Unknown Sibling(s) Family History Reviewed.: Unknown Medication/Allergy Home Medications: Ciprofloxacin HCl [Cipro 500 mg Tablet] 500 mg PO Q12 05/22/20 Furosemide [Lasix 40 mg Tablet] 40 mg PO QAM 05/22/20 Potassium Chloride [Klor-Con 10 Meq Tablet ER] 10 meq PO DAILY 05/22/20 Allergies/Adverse Reactions: Penicillins Adverse Reaction (Verified 05/21/20 19:36) Review of Systems Constitutional: PRESENT: weakness. ABSENT: fever(s), headache(s), night sweats Eyes: ABSENT: visual disturbances Ears: ABSENT: hearing changes Nose, Mouth, and Throat: ABSENT: mouth pain, sore throat Cardiovascular: ABSENT: orthropnea, palpitations Respiratory: ABSENT: dyspnea, hemoptysis Gastrointestinal: PRESENT: dysphagia. ABSENT: coffee ground emesis, melena, nausea, vomiting Genitourinary: ABSENT: dysuria, hematuria Musculoskeletal: ABSENT: muscle weakness Integumentary: ABSENT: lesions, pruritus Neurological: ABSENT: syncope, tingling, tremor(s), vertigo Endocrine: ABSENT: polydipsia, polyphagia, polyuria Hematologic/Lymphatic: ABSENT: easy bruising Physical Exam Vital Signs: Temp Pulse Resp BP Pulse Ox 98.3 F 97 18 99/62 L 100 05/22/20 12:07 05/22/20 12:07 05/22/20 12:07 05/22/20 12:07 05/22/20 12:07 Intake & Output 05/21/20 05/22/20 05/23/20 06:59 06:59 06:59 Intake Total 1000 Balance 1000 Weight 53.5 kg 53.5 kg General appearance: PRESENT: no acute distress, cooperative, thin Head exam: PRESENT: atraumatic, normocephalic Eye exam: PRESENT: EOMI, PERRLA. ABSENT: nystagmus, periorbital swelling, scleral icterus Mouth exam: PRESENT: moist, neck supple Throat exam: ABSENT: tonsillar exudate, tonsillogmegaly Neck exam: ABSENT: meningismus, tenderness, thyromegaly Respiratory exam: PRESENT: symmetrical, unlabored. ABSENT: tachypnea, wheezes Cardiovascular exam: PRESENT: RRR, +S1, +S2 GI/Abdominal exam: PRESENT: soft. ABSENT: rebound, rigid, tenderness Extremities exam: ABSENT: joint swelling Musculoskeletal exam: PRESENT: full ROM Neurological exam: PRESENT: alert, awake, oriented to person, oriented to place, CN II-XII grossly intact Psychiatric exam: PRESENT: appropriate affect Focused psych exam: ABSENT: restlessness Skin exam: PRESENT: normal color. ABSENT: mottled, pallor, petechiae, urticaria, vesicles Results Laboratory Results: 05/21/20 20:17 05/21/20 20:17 11/01/20 11/01/20 11/01/20 20:17 20:17 20:17 WBC 5.0 RBC 4.81 Hgb 14.6 Hct 43.1 MCV 90 MCH 30.4 MCHC 33.9 RDW 21.0 H Plt Count 161 Seg Neutrophils % 72.1 Sodium 132.4 L Potassium 3.3 L Chloride 87 L Carbon Dioxide 24 Anion Gap 21 H BUN 9 Creatinine 0.48 L Est GFR ( Amer) > 60 Glucose 102 Lactic Acid Calcium 9.1 Magnesium 1.4 L Total Bilirubin 5.2 H AST 49 H Alkaline Phosphatase 42 Total Protein 7.5 Albumin 4.2 Lipase 469.1 H TSH 5.28 H Free T4 Free T3 pg/mL Urine Color Urine Appearance Urine pH Ur Specific [place] Urine Protein Urine Glucose (UA) Urine Ketones Urine Blood Urine RBC (Auto) 05/21/20 05/21/20 05/21/20 20:17 20:17 21:55 WBC RBC Hgb Hct MCV MCH MCHC RDW Plt Count Seg Neutrophils % Sodium Potassium Chloride Carbon Dioxide Anion Gap BUN Creatinine Est GFR ( Amer) Glucose Lactic Acid 2.0 Calcium Magnesium Total Bilirubin AST Alkaline Phosphatase Total Protein Albumin Lipase TSH Free T4 2.15 Free T3 pg/mL 2.88 Urine Color [place] Urine Appearance CLEAR Urine pH 6.0 Ur Specific [place] 1.013 Urine Protein NEGATIVE Urine Glucose (UA) NEGATIVE Urine Ketones 80 H Urine Blood NEGATIVE Urine RBC (Auto) 0 05/21/20 20:17 Troponin I 0.019 NT-Pro-B Natriuret Pep 8220 H Impressions: Chest X-Ray 05/21/20 20:17 IMPRESSION: No acute abnormality as above. copyright 2010 [employer]- All Rights Reserved Abdomen/Pelvis CT 05/21/20 21:26 IMPRESSION: 1. Dilated/hydropic gallbladder with gallstones. There is a mild amount of pericholecystic fat stranding and a cannot exclude cholecystitis. Clinical correlation is recommended. Ultrasound or HIDA scan could be performed as clinically directed. 2. Bilateral pleural effusions and bibasilar atelectasis, greater on the right. Global cardiomegaly. Additional comments are as above. TECHNICAL DOCUMENTATION: Quality ID # 436: Final reports with documentation of one or more dose reduction techniques (e.g., Automated exposure control, adjustment of the mA and/or kV according to patient size, use of iterative reconstruction technique) copyright 2011 [employer]- All Rights Reserved Abdomen Ultrasound 05/21/20 23:49 IMPRESSION: Sludge and cholelithiasis with thickened gallbladder wall which may reflect acute or chronic cholecystitis Negative Reyna sign Right pleural effusion Probable focus of fatty infiltration along the falciform ligament Assessment & Plan - Diagnosis (1) Dysphagia Qualifiers: Dysphagia type: esophageal phase Qualified Code(s): R13.10 - Dysphagia, unspecified Is this a current diagnosis for this admission?: Yes Plan: pending results of esophagram however will need EGD Risks, benefits and alternatives are discussed with the patient in detail further recommendations to follow patient is willing to schedule - Time Time Spent: 50 to 70 Minutes
--- NOTE | 2020-05-22 16:31 | RADIOLOGY REPORT (SQ) ---
EXAM DESCRIPTION: BARIUM SWALLOW ESOPHAGUS IMAGES COMPLETED DATE/TIME: 05/22/2020 10:49 am REASON FOR STUDY: dysphagia COMPARISON: None. TECHNIQUE: Under fluoroscopic guidance, patient ingested thick and thin barium.. Fluoroscopic spot i mages and routine radiographic images acquired and stored on PACS. 12 MM BARIUM TABLET GIVEN: Patient was unable to swallow barium tablet. LIMITATIONS: None. FLUOROSCOPY TIME: 1.7 minutes 8 images saved to PACS. FINDINGS: NEUROMUSCULAR COORDINATION OF SWALLOW: Normal. No aspiration. ESOPHAGEAL MOTILITY: Normal peristalsis. No esophageal spasm. ESOPHAGEAL MUCOSA: Normal mucosa without masses or ulceration. GASTRO-ESOPHAGEAL JUNCTION: Small hiatal hernia is present. Moderate gastroesophageal reflux to the mid esophagus is demonstrated. . NON-GI TRACT STRUCTURES: No significant finding. OTHER: No other significant finding. IMPRESSION: SMALL HIATAL HERNIA WITH GASTROESOPHAGEAL REFLUX. OTHERWISE UNREMARKABLE STUDY. COMMENT: NONE Quality ID 145: Final reports for procedures using fluoroscopy that document radiation exposure jay iain, or exposure time and number of fluorographic images (if radiation exposure indices are not avail able) TECHNICAL DOCUMENTATION: JOB ID: [id number] 2010 [employer]- All Rights Reserved Reading location - IP/workstation name: [id number]
[2020-05-22] MEDS ORDERED: DOCUSATE SODIUM 100 MG CAPSULE PO SCH (18:00)
--- NOTE | 2020-05-22 19:54 | PDOC PROGRESS REPORT ---
Subjective Progress Note for:: 05/22/20 Subjective:: Patient was seen and examined at bedside. She denied any new symptoms. No chest pain, no SOb, afebrile. Dr. lezama saw her today and planned an EGD tomorrow. Barium swallow showed small hiatal hernia and GERD. Reason For Visit: WEIGHT LOSS,ANOREXIA,DYSGEUSIA,DYSPHAGIA Physical Exam Vital Signs: Temp Pulse Resp BP Pulse Ox 97.7 F 96 17 96/61 L 97 05/22/20 15:34 05/22/20 15:34 05/22/20 15:34 05/22/20 15:34 05/22/20 15:34 Intake & Output 05/21/20 05/22/20 05/23/20 06:59 06:59 06:59 Intake Total 1000 Balance 1000 Weight 53.5 kg 53.5 kg General appearance: PRESENT: no acute distress, cooperative Head exam: PRESENT: atraumatic, normocephalic Eye exam: PRESENT: EOMI, PERRLA Mouth exam: PRESENT: moist Neck exam: PRESENT: full ROM Respiratory exam: PRESENT: clear to auscultation jorge l, symmetrical, unlabored Pulses: PRESENT: +2 pedal pulses bilateral GI/Abdominal exam: PRESENT: normal bowel sounds, soft. ABSENT: rebound, ten derness Extremities exam: PRESENT: full ROM Musculoskeletal exam: PRESENT: full ROM Neurological exam: PRESENT: alert, awake, oriented to person, oriented to place, oriented to time Results Laboratory Results: 05/21/20 20:17 05/21/20 20:17 05/21/20 05/21/20 05/21/20 20:17 20:17 20:17 WBC 5.0 RBC 4.81 Hgb 14.6 Hct 43.1 MCV 90 MCH 30.4 MCHC 33.9 RDW 21.0 H Plt Count 161 Seg Neutrophils % 72.1 Sodium 132.4 L Potassium 3.3 L Chloride 87 L Carbon Dioxide 24 Anion Gap 21 H BUN 9 Creatinine 0.48 L Est GFR ( Amer) > 60 Glucose 102 Lactic Acid Calcium 9.1 Magnesium 1.4 L Total Bilirubin 5.2 H AST 49 H Alkaline Phosphatase 42 Total Protein 7.5 Albumin 4.2 Lipase 469.1 H TSH 5.28 H Free T4 Free T3 pg/mL Urine Color Urine Appearance Urine pH Ur Specific Mcfarland Urine Protein Urine Glucose (UA) Urine Ketones Urine Blood Urine RBC (Auto) 05/21/20 05/21/20 05/21/20 20:17 20:17 21:55 WBC RBC Hgb Hct MCV MCH MCHC RDW Plt Count Seg Neutrophils % Sodium Potassium Chloride Carbon Dioxide Anion Gap BUN Creatinine Est GFR ( Amer) Glucose Lactic Acid 2.0 Calcium Magnesium Total Bilirubin AST Alkaline Phosphatase Total Protein Albumin Lipase TSH Free T4 2.15 Free T3 pg/mL 2.88 Urine Color GENTRY Urine Appearance CLEAR Urine pH 6.0 Ur Specific Mcfarland 1.013 Urine Protein NEGATIVE Urine Glucose (UA) NEGATIVE Urine Ketones 80 H Urine Blood NEGATIVE Urine RBC (Auto) 0 05/21/20 20:17 Troponin I 0.019 NT-Pro-B Natriuret Pep 8220 H Impressions: Chest X-Ray 05/21/20 20:17 IMPRESSION: No acute abnormality as above. copyright 2010 [employer]- All Rights Reserved Abdomen/Pelvis CT 05/21/20 21:26 IMPRESSION: 1. Dilated/hydropic gallbladder with gallstones. There is a mild amount of pericholecystic fat stranding and a cannot exclude cholecystitis. Clinical correlation is recommended. Ultrasound or HIDA scan could be performed as clinically directed. 2. Bilateral pleural effusions and bibasilar atelectasis, greater on the right. Global cardiomegaly. Additional comments are as above. TECHNICAL DOCUMENTATION: Quality ID # 436: Final reports with documentation of one or more dose reduction techniques (e.g., Automated exposure control, adjustment of the mA and/or kV according to patient size, use of iterative reconstruction technique) copyright 2011 [employer]- All Rights Reserved Abdomen Ultrasound 05/21/20 23:49 IMPRESSION: Sludge and cholelithiasis with thickened gallbladder wall which may reflect acute or chronic cholecystitis Negative Reyna sign Right pleural effusion Probable focus of fatty infiltration along the falciform ligament Esophagus X-Ray 05/22/20 00:00 IMPRESSION: SMALL HIATAL HERNIA WITH GASTROESOPHAGEAL REFLUX. OTHERWISE UNREMARKABLE STUDY. Assessment and Plan - Diagnosis (1) Weight loss Is this a current diagnosis for this admission?: Yes Plan: - 2/2 dysphagia - work up pending - dietary consult (2) Dysphagia Qualifiers: Dysphagia type: esophageal phase Qualified Code(s): R13.10 - Dysphagia, unspecified Is this a current diagnosis for this admission?: Yes Plan: - to solids only - per history seems esophageal in nature - Barium swallow small hiatal hernia, and GERD - GI on board for planned EGD - continue protonix (3) Cardiomegaly Is this a current diagnosis for this admission?: Yes Plan: - as seen on CXR - no significant cardiac history - trop 0.019 pending repeat - EKG sinus tachy - BNP 8220 - awaiting echo result - clinically does not appear fluid overloaded. CArdiomegaly might be the origin of her dysphagia (4) Elevated brain natriuretic peptide (BNP) level Is this a current diagnosis for this admission?: Yes Plan: - BNp 8220 no significant cardiac history - awaiting echo result (5) Elevated TSH Is this a current diagnosis for this admission?: Yes Plan: - acceptable for her age -suggest to repeat after 6 weeks outpatient (6) Total bilirubin, elevated Is this a current diagnosis for this admission?: Yes Plan: - T bili 5.2 minimal icteric sclerae - US abdomen cholelithiasis without cholecystitis - GI on board - may need ERCP (7) Hypokalemia Is this a current diagnosis for this admission?: Yes Plan: - K 3.3 replaced (8) Hypomagnesemia Is this a current diagnosis for this admission?: Yes Plan: - Mg 1.4 replaced - likely 2/2 poor oral intake - Plan Summary Summary: . - Time Time Spent with patient: 25-34 minutes Anticipated Discharge Disposition: Home, Self Care Anticipated Discharge Timeframe: to be determined
--- NOTE | 2020-05-22 20:23 | XCELERA REPORT ---
[address] [address] Transthoracic Echocardiogram Report Name: TAVO BETANCOURT Age: 69 yrs Gender: Female : 1950 Patient Status: Inpatient [facility] Study Date: 05/22/2020 11:09 AM History: CHF Height: 67 in Weight: 118 lb BSA: 1.6 m2 Procedure: A complete two-dimensional transthoracic echocardiogram was performed (2D, M-mode, spectral and color flow Doppler). The study was technically adequate with some images being suboptimal in quality. Reason For Study: Cardiomegaly, elevated BNP Previous Evaluation: No previous studies were available. Ordering Physician: SHREE ACE Performed By: Anthony Hollis Interpretation Summary The study was technically adequate with some images being suboptimal in quality. Left ventricular systolic function is severely reduced. The Ejection Fraction estimate is 20-25% There is a severe amount of mitral regurgitation There is no aortic valve stenosis There is a mild amount of aortic regurgitation There is a moderate amount of tricuspid regurgitation There is moderate pulmonary hypertension by echo MMode/2D Measurements & Calculations RVDd: 3.1 cm LVIDd: 6.9 cm FS: 14.2 % Ao root diam: 2.9 cm IVSd: 0.86 cm LVIDs: 5.9 cm EDV(Teich): Ao root area: LVPWd: 0.90 cm 244.1 ml 6.5 cm2 ESV(Teich): LA dimension: 4.9 cm 172.2 ml EF(Teich): 29.4 % LVOT diam: 1.8 cmLVLd ap4: 8.4 cm SV(MOD-sp4): LVOT area: EDV(MOD-sp4): 28.0 ml 160.0 ml 2.5 cm2 LVLs ap4: 8.1 cm ESV(MOD-sp4): 132.0 ml EF(MOD-sp4): 17.5 % Doppler Measurements & Calculations MV E max kandace: MV P1/2t max kandace: Ao V2 max: AI max kandace: 145.9 cm/sec 162.6 cm/sec 113.4 cm/sec 319.0 cm/sec MV A max kandace: MV P1/2t: 66.1 msec Ao max PG: AI max P.2 cm/sec MVA(P1/2t): 3.3 cm2 5.1 mmHg 40.7 mmHg MV E/A: 1.3 MV dec slope: ARABELLA(V,D): 1.9 cm2 AI dec slope: 720.2 cm/sec2 204.3 cm/sec2 MV dec time: AI P1/2t: 0.11 sec 457.3 msec LV V1 max PG: PA V2 max: PI end-d kandace: TR max kandace: 3.1 mmHg 54.0 cm/sec 179.2 cm/sec 281.5 cm/sec LV V1 max: PA max P.2 mmHg TR max P.4 cm/sec 31.7 mmHg LV dP/dt: 454.0 mmHg/s AV P1/2t-pr_phl: MV P1/2t-pr_phl: 457.3 msec 66.1 msec Left Ventricle The left ventricle is moderately to severly dilated. There is mild concentric left ventricular hypertrophy. Left ventricular systolic function is severely reduced. The Ejection Fraction estimate is 20-25%. Doppler measurements suggest reversible restrictive left ventricular relaxation, which is associated with grade III/IV or moderate diastolic dysfunction. There is severe global hypokinesis of the left ventricle. There is no thrombus. Right Ventricle The right ventricle is moderately dilated. The right ventricular systolic function is moderately reduced. Atria The right atrium is mildly dilated. The left atrium is moderately dilated. The interatrial septum is intact with no evidence for an atrial septal defect. There is no Doppler evidence for an interatrial shunt. Mitral Valve The mitral valve leaflets appear thickened, but open well. There is no mitral valve stenosis. There is a severe amount of mitral regurgitation. Aortic Valve The aortic valve is normal in structure and function. The aortic valve is trileaflet. The aortic valve opens well. There is no aortic valve stenosis. There is a mild amount of aortic regurgitation. Tricuspid Valve The tricuspid valve is not well visualized, but is grossly normal. There is no tricuspid stenosis. There is a moderate amount of tricuspid regurgitation. Right ventricular systolic pressure is estimated to be elevated at 50-60mmHg. There is moderate pulmonary hypertension by echo. Pulmonic Valve The pulmonic valve is not well seen, but is grossly normal. There is no pulmonic valvular stenosis. There is a mild amount of pulmonic regurgitation. Great Vessels The aortic root is normal size. The inferior vena cava appeared dilated and decreased < 50% with respiration (RAP 15-20 mmHg). Effusions There is no pericardial effusion. : SHREE ACE Anil
[2020-05-23] MEDS: HEPARIN SOD (PORCINE) 5,000 UNIT/ML 1 ML VIAL SUBCUT SCH ×3 (05:54→21:40)
[2020-05-23 07:49] LABS: ALBUMIN 3.2 g/dL (3.5-5.0); ALKALINE PHOSPHATASE 30 U/L (38-126); AMYLASE 48 U/L (30-110); ANION GAP 13 (5-19); ASPARTATE AMINO TRANSFERASE 38 U/L (14-36); BILIRUBIN,DIRECT 1.9 mg/dL (0.0-0.4); BILIRUBIN,TOTAL 4.1 mg/dL (0.2-1.3); BLOOD UREA NITROGEN 9 mg/dL (7-20); CALCIUM 8.4 mg/dL (8.4-10.2); CARBON DIOXIDE 27 mmol/L (22-30); CHLORIDE 91 mmol/L (98-107); GLUCOSE 106 mg/dL (75-110); POTASSIUM 3.1 mmol/L (3.6-5.0); TOTAL PROTEIN 6.1 g/dL (6.3-8.2)
[2020-05-23 08:04] LABS: HEMATOCRIT 36.8 % (36.0-47.0); MEAN CORPUSCULAR HEMOGLOBIN 30.3 pg (27.0-33.4); MEAN CORPUSCULAR VOLUME 89 fl (80-97); PLATELET COUNT 120 10^3/uL (150-450); RED BLOOD COUNT 4.13 10^6/uL (3.72-5.28); RED CELL DISTRIBUTION WIDTH 21.1 % (11.5-14.0); WHITE BLOOD COUNT 3.7 10^3/uL (4.0-10.5)
--- NOTE | 2020-05-23 08:32 | RADIOLOGY REPORT (SQ) ---
EXAM DESCRIPTION: CT CHEST WITH IMAGES COMPLETED DATE/TIME: 05/23/2020 7:39 am REASON FOR STUDY: Weight loss, esophageal phase dysphagia COMPARISON: None. TECHNIQUE: CT scan of the chest performed using helical scanning technique with dynamic intravenous contrast injection. Images reviewed with lung, soft tissue and bone windows. Reconstructed coronal and sagittal MPR and MIP images reviewed. All images stored on PACS. All CT scanners at this facility use dose modulation, iterative reconstruction, and/or weight based d osing when appropriate to reduce radiation dose to as low as reasonably achievable (ALARA). [facility]: Dose Right [facility]: CareDose [facility]: Dose Right [facility]: Teradose 4D [facility]: [employer] CONTRAST TYPE AND DOSE: contrast/concentration: Isovue 350.00 mmol/ml; Total Contrast Delivered: 80. 0 ml; Total Saline Delivered: 50.0 ml RENAL FUNCTION: BUN 9 creatinine 0.48. RADIATION DOSE: CT Rad equipment meets quality standard of care and radiation dose reduction techniq ues were employed. CTDIvol: 4.0 mGy. DLP: 153 mGy-cm. . LIMITATIONS: None. FINDINGS: LUNGS AND PLEURA: Bilateral pleural effusions, right greater than left. Compressive atele ctasis in the lung bases. HILAR AND MEDIASTINAL STRUCTURES: No identified masses or abnormal nodes. HEART AND VASCULAR STRUCTURES: No aneurysm or dissection. No central pulmonary emboli. Cardiomegaly . No pericardial effusion. HARDWARE: None in the chest. UPPER ABDOMEN: Distended gallbladder. Limited exam. THYROID AND OTHER SOFT TISSUES: No masses. No adenopathy. BONES: No significant finding. OTHER: No other significant finding. IMPRESSION: CARDIOMEGALY. BILATERAL PLEURAL EFFUSIONS, RIGHT GREATER THAN LEFT. COMPRESSIVE ATELEC TASIS IN THE LUNG BASES. TECHNICAL DOCUMENTATION: JOB ID: [id number] Quality ID # 436: Final reports with documentation of one or more dose reduction techniques (e.g., Au tomated exposure control, adjustment of the mA and/or kV according to patient size, use of iterative reconstruction technique) 2010 [employer]- All Rights Reserved Reading location - IP/workstation name: [email or web address]
[2020-05-23] MEDS: METOCLOPRAMIDE HCL INJ/PF 10 MG/2 ML SDV IV SCH ×4 (08:37→21:45)
[2020-05-23 09:00] LABS: HEMOGLOBIN 12.5 g/dL (12.0-15.5)
[2020-05-23] MEDS ORDERED: PROPOFOL INJ 200 MG/20 ML VIAL IV ONE (10:08)
[2020-05-23] MEDS ORDERED: FENTANYL CITRATE INJ/PF 100 MCG/2 ML AMPUL IV PRN ×3 (10:39)
[2020-05-23] MEDS ORDERED: DIPHENHYDRAMINE HCL 50 MG/ML VIAL IV PRN (10:39)
[2020-05-23] MEDS ORDERED: MEPERIDINE HCL/PF INJ 25 MG/1 ML DISP.SYRIN IV PRN (10:39)
--- NOTE | 2020-05-23 10:49 | Operative Report ---
Operative Report DATE OF SURGERY: 05/23/20 Operative Report: The risks benefits and alternatives of the procedure explained to the patient in detail and informed consent is obtained.A GIF Olympus video scope was inserted into the patient's mouth and hypopharynx, the esophagus is identified intubated and insufflated, the scope was then advanced through the esophagus stomach and duodenum, retroflexion maneuver is done, the esophagus stomach and first and second portions of the duodenum examined PREOPERATIVE DIAGNOSIS: Dysphagia, weight loss POSTOPERATIVE DIAGNOSIS: Distal narrowing of the esophagus suggestive of achalasia. Stasis in the distal esophagus. Gastritis status post biopsy OPERATION: EGD with biopsy SURGEON: GRAHAM BAUTISTA ANESTHESIA: LMAC TISSUE REMOVED OR ALTERED: As noted above. COMPLICATIONS: None. ESTIMATED BLOOD LOSS: None. INTRAOPERATIVE FINDINGS: As noted above. PROCEDURE: Patient tolerated the procedure well. No immediate postprocedure complications are noted. Resume previous diet. As tolerated Patient sent back to her room in good condition. Unfortunately manometry study cannot be performed since hospital has no one trained to do this However at some point will need outpatient evaluation as her condition is suggestive of achalasia We will continue to follow as needed
[2020-05-23] MEDS: PANTOPRAZOLE SODIUM 40 MG VIAL IV SCH ×2 (11:22→21:45)
[2020-05-23] MEDS ORDERED: ONDANSETRON HCL INJ/PF 4 MG/2 ML SDV IV PRN (18:37)
--- NOTE | 2020-05-23 18:59 | PDOC PROGRESS REPORT ---
Subjective Progress Note for:: 05/23/20 Subjective:: Patient does not have much complaints. Still having dysphagia with food and not eating much of anything. Also experiencing nausea. Had endoscopy done today. Reason For Visit: WEIGHT LOSS,ANOREXIA,DYSGEUSIA,DYSPHAGIA Physical Exam Vital Signs: Temp Pulse Resp BP Pulse Ox 98.1 F 96 18 103/63 97 05/23/20 16:21 05/23/20 16:21 05/23/20 16:21 05/23/20 16:21 05/23/20 16:21 Intake & Output 05/22/20 05/23/20 05/24/20 06:59 06:59 06:59 Intake Total 1000 200 737 Balance 1000 200 737 Weight 53.5 kg 54.2 kg 54.2 kg Results Laboratory Results: 05/23/20 07:09 05/23/20 07:09 05/23/20 05/23/20 05/23/20 07:09 07:09 07:09 WBC 3.7 L RBC 4.13 Hgb 12.5 D Hct 36.8 MCV 89 MCH 30.3 MCHC 34.0 RDW 21.1 H Plt Count 120 L Sodium 131.2 L Potassium 3.1 L Chloride 91 L Carbon Dioxide 27 Anion Gap 13 BUN 9 Creatinine 0.46 L Est GFR ( Amer) > 60 Glucose 106 Calcium 8.4 Magnesium 2.2 Total Bilirubin 4.1 H AST 38 H Alkaline Phosphatase 30 L Ammonia < 8.7 L Total Protein 6.1 L Albumin 3.2 L Amylase 48 05/21/20 21:55 Clean Catch Midstream Urine Culture - Final Urogenital [place] 05/21/20 05/22/20 20:17 20:28 Troponin I 0.019 0.017 NT-Pro-B Natriuret Pep 8220 H Impressions: Chest X-Ray 05/21/20 20:17 IMPRESSION: No acute abnormality as above. copyright 2011 [employer]- All Rights Reserved Abdomen/Pelvis CT 05/21/20 21:26 IMPRESSION: 1. Dilated/hydropic gallbladder with gallstones. There is a mild amount of pericholecystic fat stranding and a cannot exclude cholecystitis. Clinical correlation is recommended. Ultrasound or HIDA scan could be performed as clinically directed. 2. Bilateral pleural effusions and bibasilar atelectasis, greater on the right. Global cardiomegaly. Additional comments are as above. TECHNICAL DOCUMENTATION: Quality ID # 436: Final reports with documentation of one or more dose reduction techniques (e.g., Automated exposure control, adjustment of the mA and/or kV according to patient size, use of iterative reconstruction technique) copyright 2011 [employer]- All Rights Reserved Abdomen Ultrasound 05/21/20 23:49 IMPRESSION: Sludge and cholelithiasis with thickened gallbladder wall which may reflect acute or chronic cholecystitis Negative Reyna sign Right pleural effusion Probable focus of fatty infiltration along the falciform ligament Esophagus X-Ray 05/22/20 00:00 IMPRESSION: SMALL HIATAL HERNIA WITH GASTROESOPHAGEAL REFLUX. OTHERWISE UNREMARKABLE STUDY. Chest CT 05/23/20 00:00 IMPRESSION: CARDIOMEGALY. BILATERAL PLEURAL EFFUSIONS, RIGHT GREATER THAN LEFT. COMPRESSIVE ATELECTASIS IN THE LUNG BASES. Assessment and Plan - Diagnosis (1) Dysphagia Qualifiers: Dysphagia type: esophageal phase Qualified Code(s): R13.10 - Dysphagia, unspecified Is this a current diagnosis for this admission?: Yes Plan: EGD today shows findings suggestive of achalasia. Unfortunately we cannot do manometry in this facility to further evaluate this. Notably biopsy was taken from the stomach for gastritis. Did not appear to be any masses or concerning lesions. Will continue on pured diet and try to see if we can encourage patient to eat more. If patient remains intolerant of even a pured diet, could try some sublingual nitroglycerin before meals to help. (2) Weight loss Is this a current diagnosis for this admission?: Yes Plan: Secondary to dysphagia. CT chest, abdomen and pelvis have not revealed any occult masses. (3) Chronic combined systolic and diastolic CHF (congestive heart failure) Is this a current diagnosis for this admission?: Yes Plan: Echocardiogram comes back showing EF of 20 to 25% with grade 3 diastolic dysfunction and severe global hypokinesis and elevated RVSP. I am reluctant on starting patient on IV diuresis at this point as patient actually looks very much dehydrated and very dry on exam and is barely eating or drinking anything due to her dysphagia. Am not fully convinced even despite elevated BNP that she is volume overloaded at this time. She may benefit from some gentle p.o. diuresis once appetite improves. She will need to be started on medications to optimize cardiac function including beta-cecilia, ARB/ACEI/ARNI as BP tolerates. She will also need ischemic evaluation. I will consult cardiology in the morning. (4) Pleural effusion Is this a current diagnosis for this admission?: Yes Plan: Moderate effusion on the right side and very small effusion on the left. Likely secondary to chronic heart failure. So far oxygen saturation has been normal. (5) Weakness Is this a current diagnosis for this admission?: Yes (6) Elevated TSH Is this a current diagnosis for this admission?: Yes (7) Total bilirubin, elevated Is this a current diagnosis for this admission?: Yes - Time Time Spent with patient: 15-24 minutes Anticipated Discharge Disposition: Home, Self Care Anticipated Discharge Timeframe: undetermined
[2020-05-23] MEDS: POTASSIUM CHLORIDE 20 MEQ PACKET PO SCH (21:45)
[2020-05-24] MEDS: POTASSIUM CHLORIDE 20 MEQ PACKET PO SCH (01:55)
[2020-05-24] MEDS: HEPARIN SOD (PORCINE) 5,000 UNIT/ML 1 ML VIAL SUBCUT SCH ×3 (05:56→22:04)
[2020-05-24 08:27] LABS: HEMATOCRIT 36.6 % (36.0-47.0); HEMOGLOBIN 12.6 g/dL (12.0-15.5); MEAN CORPUSCULAR HEMOGLOBIN 30.5 pg (27.0-33.4); MEAN CORPUSCULAR HGB CONC 34.5 g/dL (32.0-36.0); MEAN CORPUSCULAR VOLUME 89 fl (80-97); PLATELET COUNT 120 10^3/uL (150-450); RED BLOOD COUNT 4.14 10^6/uL (3.72-5.28); WHITE BLOOD COUNT 3.2 10^3/uL (4.0-10.5)
--- NOTE | 2020-05-24 08:40 | PDOC CONSULTATION ---
Consultation Consult Date: 05/24/20 Attending physician:: YASH THOMAS Provider Consulted: BERNABE ARELLANO Consult reason:: Cardiomyopathy History of Present Illness Admission Date/PCP: 05/22/20 02:39 History of Present Illness: TAVO BETANCOURT is a 69 year old female without known medical problems and no cardiac history who is consulted to our service for evaluation of newly discovered cardiomyopathy. The patient was admitted to [facility] on 05/21/2020 when s he presented to the emergency room for further evaluation generalized weakness, dysphagia and significant weight loss. Her symptoms have been going on for approximately 3 months or more however she began to feel worse 4 days prior to admission. In the emergency room she was found to have multiple electrolyte abnormalities as well as an elevated BNP therefore an echocardiogram was ordered revealing an ejection fraction between 20 and 25% among other findings. She has remained hemodynamically stable from the cardiovascular standpoint however she has remained hypotensive. Her EGD on 05/23/2020 demonstrated distal narrowing of the esophagus suggestive of achalasia as well as gastritis. Review of hospital notes demonstrates that the patient had been deemed to be dehydrated and not fluid overloaded therefore diuresis has not been started yet. Unfortunately, she continues to experience significant dysphagia and is not eating or drinking well. Physical exam on 05/24/2020: GENERAL: Pleasant and conversational. Oriented x3 with normal mood. Not in acute distress. Well groomed, thin. HEENT: Normocephalic, atraumatic. Pupils equal. Sclerae anicteric. Oropharynx is dry. NECK: No JVD. No carotid bruits. LUNGS: Clear to auscultation bilaterally. Normal respiratory effort without the use of accessory muscles or intercostal retractions. CARDIOVASCULAR: Regular rate and rhythm, normal S1 and S2 without murmurs, rubs, or gallops. PMI not displaced. ABDOMEN: No masses or tenderness to palpation. No bruit. No splenomegaly or hepatomegaly. No abdominal aorta bruit noted. EXTREMITIES: No edema, no cyanosis, no clubbing. +2 pulses femoral and pedal pulses bilaterally. SKIN: No lesions or rashes. MUSCULOSKELETAL: No chest tenderness to palpation. NEUROLOGIC: Nonfocal. No gross sensory or motor deficits bilateral upper or lower extremities. Cardiac studies: Echocardiogram on 05/22/2020: -EF 20 to 25%. -Grade 3 diastolic dysfunction. -Severe MR, mild AI, moderate TR. -Moderate pulmonary hypertension. Past Medical History Cardiac Medical History: Denies: Atrial Fibrillation, Coronary Artery Disease, DVT, Hyperlipidema, Hypertension, Pulmonary Embolism Pulmonary Medical History: Denies: Asthma, Chronic Obstructive Pulmonary Disease (COPD) EENT Medical History: Denies: Cataracts, Ears - Hearing aids Neurological Medical History: Denies: Hemorrhagic CVA, Ischemic CVA, Seizures Endocrine Medical History: Denies: Diabetes Mellitus Type 1, Diabetes Mellitus Type 2, Hyperthyroidism, Hypothyroidism, Obesity Renal/ Medical History: Denies: Chronic Kidney Disease, Nephrolithiasis Malignancy Medical History: Reports: None GI Medical History: Denies: Cirrhosis, Hepatitis, Peptic Ulcer Disease Musculoskeltal Medical History: Denies: Arthritis, Gout Skin Medical History: Denies: Eczema, Psoriasis Psychiatric Medical History: Denies: Alcohol Dependency, Depression, Substance Abuse, Tobacco Dependency Traumatic Medical History: Reports: None Hematology: Denies: Anemia, Bleeding Tendencies Infectious Medical History: Reports: None Past Surgical History Past Surgical History: Reports: Hysterectomy - Partial Social History Lives with: Family Smoking Status: Former Smoker Electronic Cigarette use?: No Frequency of Alcohol Use: None Hx Recreational Drug Use: No Drugs: None Hx Prescription Drug Abuse: No - Advance Directive Resuscitation Status: Full Code Family History Family History: denies: CAD, DM, Hypertension, Malignancy Parental Family History Reviewed: Yes Children Family History Reviewed: Yes Sibling(s) Family History Reviewed.: Yes Medication/Allergy Home Medications: Ciprofloxacin HCl [Cipro 500 mg Tablet] 500 mg PO Q12 05/22/20 Furosemide [Lasix 40 mg Tablet] 40 mg PO QAM 05/22/20 Potassium Chloride [Klor-Con 10 Meq Tablet ER] 10 meq PO DAILY 05/22/20 Allergies/Adverse Reactions: Penicillins Adverse Reaction (Verified 05/21/20 19:36) Physical Exam Vital Signs: Temp Pulse Resp BP Pulse Ox 98.1 F 94 16 95/69 L 95 05/24/20 03:45 05/24/20 03:45 05/24/20 03:45 05/24/20 03:45 05/24/20 03:45 Intake & Output 05/22/20 05/23/20 05/24/20 06:59 06:59 06:59 Intake Total 1000 200 997 Balance 1000 200 997 Weight 53.5 kg 54.2 kg 55.5 kg Results Laboratory Results: 05/23/20 07:09 05/23/20 07:09 05/23/20 05/23/20 05/23/20 07:09 07:09 07:09 WBC 3.7 L RBC 4.13 Hgb 12.5 D Hct 36.8 MCV 89 MCH 30.3 MCHC 34.0 RDW 21.1 H Plt Count 120 L Sodium 131.2 L Potassium 3.1 L Chloride 91 L Carbon Dioxide 27 Anion Gap 13 BUN 9 Creatinine 0.46 L Est GFR ( Amer) > 60 Glucose 106 Calcium 8.4 Magnesium 2.2 Total Bilirubin 4.1 H AST 38 H Alkaline Phosphatase 30 L Ammonia < 8.7 L Total Protein 6.1 L Albumin 3.2 L Amylase 48 05/21/20 21:55 Clean Catch Midstream Urine Culture - Final Urogenital [place] 05/21/20 05/22/20 20:17 20:28 Troponin I 0.019 0.017 NT-Pro-B Natriuret Pep 8220 H Impressions: Chest X-Ray 05/21/20 20:17 IMPRESSION: No acute abnormality as above. copyright 2010 [employer]- All Rights Reserved Abdomen/Pelvis CT 05/21/20 21:26 IMPRESSION: 1. Dilated/hydropic gallbladder with gallstones. There is a mild amount of pericholecystic fat stranding and a cannot exclude cholecystitis. Clinical correlation is recommended. Ultrasound or HIDA scan could be performed as clinically directed. 2. Bilateral pleural effusions and bibasilar atelectasis, greater on the right. Global cardiomegaly. Additional comments are as above. TECHNICAL DOCUMENTATION: Quality ID # 436: Final reports with documentation of one or more dose reduction techniques (e.g., Automated exposure control, adjustment of the mA and/or kV according to patient size, use of iterative reconstruction technique) copyright 2011 [employer]- All Rights Reserved Abdomen Ultrasound 05/21/20 23:49 IMPRESSION: Sludge and cholelithiasis with thickened gallbladder wall which may reflect acute or chronic cholecystitis Negative Reyna sign Right pleural effusion Probable focus of fatty infiltration along the falciform ligament Esophagus X-Ray 05/22/20 00:00 IMPRESSION: SMALL HIATAL HERNIA WITH GASTROESOPHAGEAL REFLUX. OTHERWISE UNREMARKABLE STUDY. Chest CT 05/23/20 00:00 IMPRESSION: CARDIOMEGALY. BILATERAL PLEURAL EFFUSIONS, RIGHT GREATER THAN LEFT. COMPRESSIVE ATELECTASIS IN THE LUNG BASES. 05/23/20 07:09 05/23/20 07:09 MCV 89 fl (80-97) 05/23/20 07:09 MCH 30.3 pg (27.0-33.4) 05/23/20 07:09 MCHC 34.0 g/dL (32.0-36.0) 05/23/20 07:09 RDW 21.1 % (11.5-14.0) H 05/23/20 07:09 Seg Neutrophils % 72.1 % (42-78) 05/21/20 20:17 Chloride 91 mmol/L (98-107) L 05/23/20 07:09 Carbon Dioxide 27 mmol/L (22-30) 05/23/20 07:09 Anion Gap 13 (5-19) 05/23/20 07:09 Est GFR ( Amer) > 60 (>60) 05/23/20 07:09 Glucose 106 mg/dL (75-110) 05/23/20 07:09 Lactic Acid 2.0 mmol/L (0.7-2.1) 05/21/20 20:17 Calcium 8.4 mg/dL (8.4-10.2) 05/23/20 07:09 Magnesium 2.2 mg/dL (1.6-2.3) 05/23/20 07:09 Total Bilirubin 4.1 mg/dL (0.2-1.3) H 05/23/20 07:09 AST 38 U/L (14-36) H 05/23/20 07:09 Alkaline Phosphatase 30 U/L (38-126) L 05/23/20 07:09 Ammonia < 8.7 umol/L (9-33) L 05/23/20 07:09 Total Protein 6.1 g/dL (6.3-8.2) L 05/23/20 07:09 Albumin 3.2 g/dL (3.5-5.0) L 05/23/20 07:09 Amylase 48 U/L (30-110) 05/23/20 07:09 Lipase 469.1 U/L (23-300) H 05/21/20 20:17 TSH 5.28 uIU/mL (0.47-4.68) H 05/21/20 20:17 Free T4 2.15 ng/dL (0.78-2.19) 05/21/20 20:17 Free T3 pg/mL 2.88 pg/mL (2.77-5.27) 05/21/20 20:17 Urine Color GENTRY 05/21/20 21:55 Urine Appearance CLEAR 05/21/20 21:55 Urine pH 6.0 (5.0-9.0) 05/21/20 21:55 Ur Specific [place] 1.013 05/21/20 21:55 Urine Protein NEGATIVE mg/dL (NEGATIVE) 05/21/20 21:55 Urine Glucose (UA) NEGATIVE mg/dL (NEGATIVE) 05/21/20 21:55 Urine Ketones 80 mg/dL (NEGATIVE) H 05/21/20 21:55 Urine Blood NEGATIVE (NEGATIVE) 05/21/20 21:55 Urine RBC (Auto) 0 /HPF 05/21/20 21:55 05/21/20 21:55 Clean Catch Midstream Urine Culture - Final Urogenital [place] 05/21/20 05/22/20 20:17 20:28 Troponin I 0.019 0.017 NT-Pro-B Natriuret Pep 8220 H Current Medication List Generic Name Dose Route Start Last Admin Trade Name Freq PRN Reason Stop Dose Admin Acetaminophen 650 mg 05/22/20 03:17 Tylenol Soln 325 Mg/10.15 Ml Udcup PO 06/21/20 03:16 Q4HP PRN FOR PAIN OR TEMP Al Hydrox/Mg Hydrox/Simethicone 30 ml 05/22/20 03:11 05/23/20 17:37 Maalox Plus Susp 30 Udcup PO 06/21/20 03:10 30 ml Q6HP PRN Administration HEARTBURN Guaifenesin 200 mg 05/22/20 03:19 Robitussin Syrup 200 Mg/10 Ml Ud Cup PO 06/21/20 03:18 Q4HP PRN COUGH Heparin Sodium (Porcine) 5,000 unit 05/22/20 06:00 05/24/20 05:56 Heparin Inj 5,000 Units/Ml 1 Ml Vial SUBCUT 06/21/20 05:59 Not Given Q8 STEPHANI Magnesium Hydroxide 30 ml 05/22/20 03:11 Milk Of Magnesia 30 Ml Udcup PO 06/21/20 03:10 HSP PRN FOR CONSTIPATION Metoclopramide HCl 5 mg 05/22/20 08:00 05/23/20 21:45 Reglan Inj/Pf 10 Mg/2 Ml Sdv IV 06/21/20 07:59 5 mg ACHS STEPHANI Administration Metoprolol Succinate 25 mg 05/24/20 10:00 Toprol Xl 25 Mg Tab.Sr PO 06/23/20 09:59 DAILY STEPHANI Ondansetron HCl 4 mg 05/23/20 18:37 05/23/20 19:11 Zofran Inj/Pf 4 Mg/2 Ml Sdv IV 06/22/20 18:36 4 mg Q8HP PRN Administration FOR NAUSEA/VOMITING Pantoprazole Sodium 40 mg 05/22/20 10:00 05/23/20 21:45 Protonix Iv Inj 40 Mg Vial IV 05/29/20 09:59 40 mg Q12 STEPHANI Administration Sodium Chloride 2.5 ml 05/22/20 06:00 05/24/20 05:56 Saline Flush 2.5 Ml Monoject Prefil Syrin IV 06/21/20 05:59 Not Given Q8 STEPHANI Discontinued Medications Generic Name Dose Route Start Last Admin Trade Name Freq PRN Reason Stop Dose Admin Acetaminophen 650 mg 05/22/20 03:17 Tylenol 650 Mg Supp AR 06/21/20 03:16 Q4HP PRN For headache, pain or fever Diphenhydramine HCl 12.5 mg 05/23/20 10:39 Benadryl Inj 50 Mg/1 Ml Vial IV 05/23/20 13:39 .WHILE IN PACU PRN ITCHING Docusate Sodium 100 mg 05/22/20 10:00 05/22/20 10:20 Colace Udc 100 Mg/10 Ml Oral Soln PO 06/21/20 09:59 Not Given BID STEPHANI Docusate Sodium 100 mg 05/22/20 18:00 05/22/20 18:46 Colace 100 Mg Capsule PO 06/21/20 17:59 100 mg BID STEPHANI Administration Fentanyl Citrate 25 mcg 05/23/20 10:39 Sublimaze Inj/Pf 100 Mcg/2 Ml Ampule IV 05/23/20 13:39 .WHILE IN PACU PRN PAIN SCALE 2-3 Fentanyl Citrate 12.5 mcg 05/23/20 10:39 Sublimaze Inj/Pf 100 Mcg/2 Ml Ampule IV 05/23/20 13:39 .WHILE IN PACU PRN PAIN SCALE OF 1 Fentanyl Citrate 50 mcg 05/23/20 10:39 Sublimaze Inj/Pf 100 Mcg/2 Ml Ampule IV 05/23/20 13:39 .WHILE IN PACU PRN PAIN SCALE 4-5 Sodium Chloride 1,000 mls @ 0 mls/hr 05/21/20 19:55 05/21/20 20:38 Nacl 0.9% 1000 Ml Iv Soln IV 05/21/20 19:56 Not Given BOLUS ONE Wide Open Sodium Chloride 500 mls @ 0 mls/hr 05/21/20 20:16 05/21/20 21:06 Nacl 0.9% 500 Ml Iv Soln IV 05/21/20 20:17 Infused NOW ONE Infusion Wide Open Levofloxacin/Dextrose 750 mg in 150 mls @ 100 mls/hr 05/22/20 01:57 05/22/20 06:19 Levaquin Rtu 750 Mg/D5w 150 Ml Premix IV 05/22/20 03:26 Infused NOW ONE Infusion Metronidazole 500 mg in 100 mls @ 100 mls/hr 05/22/20 01:58 05/22/20 03:28 Flagyl Rtu 500 Mg/Ns 100ml Premix IV 05/22/20 02:57 Infused NOW ONE Infusion Magnesium Sulfate/Dextrose 1 gm in 100 mls @ 100 mls/hr 05/22/20 02:00 05/22/20 06:55 Magnesium Sulfate Rtu-D5w 1 Gm/100 Ml Premix IV 05/22/20 03:59 Infused Q1H STEPHANI Infusion Potassium Chloride/Water 20 meq in 50 mls @ 25 mls/hr 05/22/20 03:26 05/22/20 06:21 Potassium Chloride Jeremias 20 Meq/50 Ml IV 05/22/20 05:25 Infused NOW ONE Infusion Magnesium Sulfate/Dextrose 1 gm in 100 mls @ 100 mls/hr 05/22/20 20:45 05/23/20 02:38 Magnesium Sulfate Rtu-D5w 1 Gm/100 Ml Premix IV 05/22/20 22:44 Infused Q1H STEPHANI Infusion Lorazepam 1 mg 05/22/20 03:19 Ativan Inj 2 Mg/1 Ml Vial IV 05/29/20 03:18 Q4HP PRN ANXIETY/AGITATION Meperidine HCl 12.5 mg 05/23/20 10:39 Demerol Inj 25 Mg/1 Ml Syringe IV 05/23/20 13:39 .WHILE IN PACU PRN Shivering Morphine Sulfate 2 - 4 mg 05/22/20 03:19 Morphine 10 Mg/Ml Inj IV 05/29/20 03:18 Q2HP PRN See protocol Protocol Ondansetron HCl 4 mg 05/21/20 20:16 05/21/20 20:35 Zofran Inj/Pf 4 Mg/2 Ml Sdv IV 05/21/20 20:17 4 mg NOW ONE Administration Ondansetron HCl 4 mg 05/22/20 00:58 05/22/20 01:02 Zofran Inj/Pf 4 Mg/2 Ml Sdv IV 05/22/20 00:59 4 mg NOW ONE Administration Potassium Chloride 40 meq 05/23/20 19:00 05/24/20 01:55 Potassium Chloride 20 Meq Packet PO 05/24/20 01:01 40 meq Q6H STEPHANI Administration Propofol Confirm 05/23/20 10:08 Diprivan Inj 200 Mg/20 Ml Vial Administered 05/23/20 10:09 Dose 200 mg IV .[facility] ONE Assessment & Plan - Diagnosis (1) Cardiomyopathy Qualifiers: Cardiomyopathy type: unspecified Qualified Code(s): I42.9 - Cardiomyopathy, unspecified Is this a current diagnosis for this admission?: Yes Plan: The patient has a newly discovered severe cardiomyopathy with an ejection fraction between 20 and 25% in the setting of significant weight loss from malnutrition secondary to dysphagia with associated multiple electrolyte abnormalities. She denied ischemic symptoms and denies known history cardiovascular problems in the past therefore it is quite possible that her cardiomyopathy is secondary to her malnutrition and metabolic issues however she does have severe mitral regurgitation of unknown duration. Whether or not her MR is secondary to LV dilatation versus a primary problem causing her cardiomyopathy it is unclear at this time however there are no gross mitral valve abnormalities on her echo therefore I think it is a functional issue. Unfortunately her blood pressure is low which severely limits our ability to treat her appropriately for her cardiomyopathy. I do not believe at this point that she needs diuresis as she looks mildly dehydrated on exam, her lungs are clear to auscultation, she denies heart failure symptoms and there are no physical findings consistent with fluid overload. Ideally she should be started on an ARNI however I do not believe her blood pressure would support that and, even low-dose NALLELY inhibitor may drop her pressure further. She definitely needs treatment for her dysphagia and esophageal abnormalities. Recommendations: -Agree with starting low-dose beta-cecilia. -Cardiac telemetry for cardiac dysrhythmias surveillance. -Replace electrolytes as indicated. -Maintain fluids to a bare minimum. -Low-sodium diet. -Strict intake and output. -May try very low-dose lisinopril as tolerated by her blood pressure. -The patient will require ischemic assessment as well as further mitral valve assessment with transesophageal echocardiography once her primary issue has been addressed and her blood pressure improves. This can be done as an outpatient. -The patient will need a LifeVest prior to discharge. -Cardiology does not have further recommendations therefore we will sign off the case for now. Please notify cardiology as to when the patient is ready to be discharged. (2) Mitral regurgitation Qualifiers: Cardiac valve disease etiology: nonrheumatic Qualified Code(s): I34.0 - Nonrheumatic mitral (valve) insufficiency Is this a current diagnosis for this admission?: Yes Plan: The patient has severe MR on her recent echocardiogram. Whether she has primary severe MR causing her dilated cardiomyopathy versus functional MR secondary to LV dilatation it is unclear at this time however her valve appeared to be anatomically normal on her surface echocardiogram. Recommendations: -Treat dilated cardiomyopathy as stated above. -We will consider transesophageal echocardiography for better assessment of the mitral valve once the patient's dysphagia and esophageal abnormalities have been addressed and her blood pressure is improved.
[2020-05-24 08:47] LABS: ANION GAP 12 (5-19); BLOOD UREA NITROGEN 12 mg/dL (7-20); CALCIUM 8.9 mg/dL (8.4-10.2); CARBON DIOXIDE 28 mmol/L (22-30); CHLORIDE 92 mmol/L (98-107); GLUCOSE 110 mg/dL (75-110); POTASSIUM 3.6 mmol/L (3.6-5.0)
[2020-05-24] MEDS: METOCLOPRAMIDE HCL INJ/PF 10 MG/2 ML SDV IV SCH ×4 (09:48→22:06)
[2020-05-24] MEDS: PANTOPRAZOLE SODIUM 40 MG VIAL IV SCH ×2 (09:48→22:07)
[2020-05-24] MEDS: METOPROLOL SUCCINATE 25 MG TAB.SR.24H PO SCH (10:18)
--- NOTE | 2020-05-24 14:24 | PDOC PROGRESS REPORT ---
Subjective Progress Note for:: 05/24/20 Subjective:: Patient was able to eat a small amount of oatmeal this morning. Feels fatigued. I encouraged her to continue attempting to eat. Reason For Visit: WEIGHT LOSS,ANOREXIA,DYSGEUSIA,DYSPHAGIA Physical Exam Vital Signs: Temp Pulse Resp BP Pulse Ox 97.8 F 99 16 101/69 92 05/24/20 12:25 05/24/20 12:25 05/24/20 12:25 05/24/20 12:25 05/24/20 12:25 Intake & Output 05/23/20 05/24/20 05/25/20 06:59 06:59 06:59 Intake Total 200 1257 Balance 200 1257 Weight 54.2 kg 55.5 kg General appearance: PRESENT: no acute distress, cooperative, thin. ABSENT: well-nourished Neck exam: ABSENT: JVD Respiratory exam: PRESENT: symmetrical, unlabored. ABSENT: tachypnea, wheezes Cardiovascular exam: PRESENT: RRR, +S1, +S2. ABSENT: tachycardia GI/Abdominal exam: PRESENT: soft. ABSENT: rebound, rigid, tenderness Extremities exam: ABSENT: pedal edema Neurological exam: PRESENT: alert, awake, oriented to person, oriented to place, oriented to time Results Laboratory Results: 05/24/20 07:53 05/24/20 07:53 05/24/20 05/24/20 07:53 07:53 WBC 3.2 L RBC 4.14 Hgb 12.6 Hct 36.6 MCV 89 MCH 30.5 MCHC 34.5 RDW 21.0 H Plt Count 120 L Sodium 131.8 L Potassium 3.6 Chloride 92 L Carbon Dioxide 28 Anion Gap 12 BUN 12 Creatinine 0.49 L Est GFR ( Amer) > 60 Glucose 110 Calcium 8.9 Magnesium 1.9 05/21/20 21:55 Clean Catch Midstream Urine Culture - Final Urogenital [place] 05/21/20 05/22/20 20:17 20:28 Troponin I 0.019 0.017 NT-Pro-B Natriuret Pep 8220 H Impressions: Chest X-Ray 05/21/20 20:17 IMPRESSION: No acute abnormality as above. copyright 2011 [employer]- All Rights Reserved Abdomen/Pelvis CT 05/21/20 21:26 IMPRESSION: 1. Dilated/hydropic gallbladder with gallstones. There is a mild amount of pericholecystic fat stranding and a cannot exclude cholecystitis. Clinical correlation is recommended. Ultrasound or HIDA scan could be performed as clinically directed. 2. Bilateral pleural effusions and bibasilar atelectasis, greater on the right. Global cardiomegaly. Additional comments are as above. TECHNICAL DOCUMENTATION: Quality ID # 436: Final reports with documentation of one or more dose reduction techniques (e.g., Automated exposure control, adjustment of the mA and/or kV according to patient size, use of iterative reconstruction technique) copyright 2011 [employer]- All Rights Reserved Abdomen Ultrasound 05/21/20 23:49 IMPRESSION: Sludge and cholelithiasis with thickened gallbladder wall which may reflect acute or chronic cholecystitis Negative Reyna sign Right pleural effusion Probable focus of fatty infiltration along the falciform ligament Esophagus X-Ray 05/22/20 00:00 IMPRESSION: SMALL HIATAL HERNIA WITH GASTROESOPHAGEAL REFLUX. OTHERWISE UNREM ARKABLE STUDY. Chest CT 05/23/20 00:00 IMPRESSION: CARDIOMEGALY. BILATERAL PLEURAL EFFUSIONS, RIGHT GREATER THAN LEFT. COMPRESSIVE ATELECTASIS IN THE LUNG BASES. Assessment and Plan - Diagnosis (1) Dysphagia Qualifiers: Dysphagia type: esophageal phase Qualified Code(s): R13.10 - Dysphagia, unspecified Is this a current diagnosis for this admission?: Yes Plan: EGD shows findings suggestive of achalasia. Notably biopsies were taken from Did not appear to be any masses or concerning lesions. Continue on pured diet and try to see if we can encourage patient to eat more. She was able to eat a small amount of oatmeal this morning. Unfortunately we cannot do manometry in this facility to further evaluate this. Will set patient up with [facility] outpatient for workup and treatment. If patient is able to eat, then can plan towards discharging If not able to eat, we could try some sublingual nitroglycerin before meals or daily low dose imdur which has some symptomatic benefit in achalasia. (2) Weight loss Is this a current diagnosis for this admission?: Yes Plan: Secondary to dysphagia. CT chest, abdomen and pelvis have not revealed any occult masses. (3) Chronic combined systolic and diastolic CHF (congestive heart failure) Is this a current diagnosis for this admission?: Yes Plan: Echocardiogram comes back with dilated biventricular failure EF of 20 to 25% with grade 3 diastolic dysfunction and severe global hypokinesis and elevated RVSP and mod-severe MR. ?? if ischemic vs nonischemic cardiomyopathy. Potentially nonischemic causes in clude ?Chaga's disease vs severe MR vs protein caloric malnutrition etc. Plan is to pursue ischemic evaluation as outpatient Sent out T. cruzi IgG Despite elevated BNP, she clinically appears to be very dry and dehydrated and not volume overloaded. She does not require any diuresis at this time. Started low-dose Toprol-XL today. We will add low-dose lisinopril if BP tolerates. I have discussed case with competitive intelligence manager who has evaluated patient and recommends LifeVest prior to discharge. Discharge planning consult placed to work on getting LifeVest. May pose an issue as patient is self-pay. (4) Moderate to severe mitral regurgitation Is this a current diagnosis for this admission?: Yes Plan: Cardiology consulted. Recommending ALICIA and further evaluation once patient's current appetite, functional status have improved and malnutrition has been addressed. (5) Pleural effusion Is this a current diagnosis for this admission?: Yes Plan: Moderate effusion on the right side and very small effusion on the left. Likely secondary to chronic heart failure. So far oxygen saturation has been normal. No need for thoracentesis. Holding off on diuresis at this time as clinically dehydrated with very poor oral intake. Focus will be on initiating meds that optimize cardiac function. (6) Malnutrition of moderate degree Is this a current diagnosis for this admission?: Yes (7) Weakness Is this a current diagnosis for this admission?: Yes (8) Elevated TSH Is this a current diagnosis for this admission?: Yes (9) Total bilirubin, elevated Is this a current diagnosis for this admission?: Yes - Time Time Spent with patient: 15-24 minutes Anticipated Discharge Disposition: Home with Home Health Anticipated Discharge Timeframe: within 36 hours
[2020-05-24] MEDS ORDERED: POTASSIUM CHLORIDE 20 MEQ PACKET PO ONE (14:25)
--- NOTE | 2020-05-24 15:51 | Progress Note ---
Provider Note Provider Note: received call from Dr Geiger and note reviewed patient will need confirmation of possible achalasia with a manometry study this will likely need to be made to a tertiary institution like [facility] or at [place] I see that they want to refer to Dr Meredith the options of achalasia would include pneumatic dilation, vs Botox injections vs surgical options that would be more appropriate to have the patient evaluated at a tertiary center sublingual nitro has not place in the treatment since the patient would be at [facility] of hypotension plus we are not dealing with the issue of spasm. would recommend discontinuing that dietary considerations should include high calorie fluids along with purreed foods
[2020-05-25] MEDS: HEPARIN SOD (PORCINE) 5,000 UNIT/ML 1 ML VIAL SUBCUT SCH ×3 (05:50→22:00)
[2020-05-25] MEDS: METOCLOPRAMIDE HCL INJ/PF 10 MG/2 ML SDV IV SCH ×4 (09:06→21:42)
[2020-05-25] MEDS: PANTOPRAZOLE SODIUM 40 MG VIAL IV SCH ×2 (09:06→21:42)
[2020-05-25] MEDS: METOPROLOL SUCCINATE 25 MG TAB.SR.24H PO SCH (09:40)
[2020-05-25 09:46] LABS: ANION GAP 10 (5-19); BLOOD UREA NITROGEN 14 mg/dL (7-20); CALCIUM 9.3 mg/dL (8.4-10.2); CARBON DIOXIDE 30 mmol/L (22-30); CHLORIDE 91 mmol/L (98-107); GLUCOSE 118 mg/dL (75-110); POTASSIUM 4.3 mmol/L (3.6-5.0)
[2020-05-25] MEDS: POTASSIUM CHLORIDE 20 MEQ PACKET PO SCH (09:51)
--- NOTE | 2020-05-25 16:01 | PDOC PROGRESS REPORT ---
Subjective Progress Note for:: 05/25/20 Subjective:: No adverse events overnight. No new complaints. She said that she still having trouble swallowing even with the pured diet but she is able to tolerate liquids and Ensure as long as she does not drink it too fast. Her blood pressures are still running on the low side. Reason For Visit: WEIGHT LOSS,ANOREXIA,DYSGEUSIA,DYSPHAGIA Physical Exam Vital Signs: Temp Pulse Resp BP Pulse Ox 97.8 F 90 18 101/61 99 05/25/20 08:09 05/25/20 07:00 05/24/20 23:38 05/24/20 23:38 05/24/20 23:38 Intake & Output 05/24/20 05/25/20 05/26/20 06:59 06:59 06:59 Intake Total 1257 335 Balance 1257 335 Weight 55.5 kg 56.1 kg 56.1 kg General appearance: PRESENT: no acute distress, cooperative, disheveled, thin Respiratory exam: PRESENT: clear to auscultation jorge l, symmetrical, unlabored. ABSENT: accessory muscle use, chest wall tenderness, crackles, prolonged expiratory phas, rhonchi, tachypnea, wheezes Cardiovascular exam: PRESENT: RRR, +S1, +S2 Pulses: PRESENT: normal carotid pulses Vascular exam: PRESENT: normal capillary refill GI/Abdominal exam: PRESENT: normal bowel sounds, soft. ABSENT: distended, guarding, rebound, tenderness Extremities exam: ABSENT: clubbing, pedal edema Musculoskeletal exam: PRESENT: normal inspection. ABSENT: deformity Neurological exam: PRESENT: awake, oriented to person, oriented to place, oriented to situation Psychiatric exam: PRESENT: flat affect Skin exam: PRESENT: dry, warm Results Laboratory Results: 05/24/20 07:53 05/25/20 06:28 05/25/20 06:28 Sodium 131.0 L Potassium 4.3 Chloride 91 L Carbon Dioxide 30 Anion Gap 10 BUN 14 Creatinine 0.56 Est GFR ( Amer) > 60 Glucose 118 H Calcium 9.3 Magnesium 1.9 05/21/20 05/22/20 20:17 20:28 Troponin I 0.019 0.017 NT-Pro-B Natriuret Pep 8220 H Impressions: Chest X-Ray 05/21/20 20:17 IMPRESSION: No acute abnormality as above. copyright 2010 [employer]- All Rights Reserved Abdomen/Pelvis CT 05/21/20 21:26 IMPRESSION: 1. Dilated/hydropic gallbladder with gallstones. There is a mild amount of pericholecystic fat stranding and a cannot exclude cholecystitis. Clinical correlation is recommended. Ultrasound or HIDA scan could be performed as clinically directed. 2. Bilateral pleural effusions and bibasilar atelectasis, greater on the right. Global cardiomegaly. Additional comments are as above. TECHNICAL DOCUMENTATION: Quality ID # 436: Final reports with documentation of one or more dose reduction techniques (e.g., Automated exposure control, adjustment of the mA and/or kV according to patient size, use of iterative reconstruction technique) copyright 2011 [employer]- All Rights Reserved Abdomen Ultrasound 05/21/20 23:49 IMPRESSION: Sludge and cholelithiasis with thickened gallbladder wall which may reflect acute or chronic cholecystitis Negative Reyna sign Right pleural effusion Probable focus of fatty infiltration along the falciform ligament Esophagus X-Ray 05/22/20 00:00 IMPRESSION: SMALL HIATAL HERNIA WITH GASTROESOPHAGEAL REFLUX. OTHERWISE UNREMARKABLE STUDY. Chest CT 05/23/20 00:00 IMPRESSION: CARDIOMEGALY. BILATERAL PLEURAL EFFUSIONS, RIGHT GREATER THAN LEFT. COMPRESSIVE ATELECTASIS IN THE LUNG BASES. Assessment and Plan - Diagnosis (1) Anorexia Is this a current diagnosis for this admission?: Yes (2) Cardiomegaly Is this a current diagnosis for this admission?: Yes (3) Cardiomyopathy Qualifiers: Cardiomyopathy type: unspecified Qualified Code(s): I42.9 - Cardiomyopathy, unspecified Is this a current diagnosis for this admission?: Yes (4) Cholelithiasis Qualifiers: Cholelithiasis location: gallbladder Cholecystitis presence: with cholecystitis Cholecystitis acuity: unspecified acuity Biliary obstruction: without biliary obstruction Qualified Code(s): K80.10 - Calculus of gallbladder with chronic cholecystitis without obstruction Is this a current diagnosis for this admission?: Yes (5) Chronic combined systolic and diastolic CHF (congestive heart failure) Is this a current diagnosis for this admission?: Yes (6) Dysgeusia Is this a current diagnosis for this admission?: Yes (7) Dysphagia Qualifiers: Dysphagia type: esophageal phase Qualified Code(s): R13.10 - Dysphagia, unspecified Is this a current diagnosis for this admission?: Yes (8) Malnutrition of moderate degree Is this a current diagnosis for this admission?: Yes (9) Moderate to severe mitral regurgitation Is this a current diagnosis for this admission?: Yes (10) Pleural effusion Is this a current diagnosis for this admission?: Yes - Plan Summary Summary: She appears to be euvolemic at this time. There is been some discussion about giving her a small dose of Imdur if she still having trouble eating. She says she still having some difficulty swallowing, but her blood pressure was too low today to consider putting her on a medication that would lower her blood pressure even further. I have encouraged her to try to take in as much nutritio n as she can even if she has to do it slowly over a long period of time. Would also like to start an NALLELY inhibitor on her for her heart failure but again her blood pressure was too low to consider that today. There is also been some talk of her getting a LifeVest prior to discharge but if she is a self-pay I do not know if she is going to be able to get that here. - Time Time Spent with patient: 15-24 minutes Anticipated Discharge Disposition: Home, Self Care Anticipated Discharge Timeframe: Undetermined
--- NOTE | 2020-05-25 18:02 | EKG REPORT ---
SEVERITY:- ABNORMAL ECG - SINUS TACHYCARDIA LEFT BUNDLE BRANCH BLOCK : Confirmed by: Andrey Pugh MD 25-May-2020 18:01:16
[2020-05-26] MEDS: HEPARIN SOD (PORCINE) 5,000 UNIT/ML 1 ML VIAL SUBCUT SCH (05:24)
[2020-05-26] MEDS: POTASSIUM CHLORIDE 20 MEQ PACKET PO SCH (09:20)
[2020-05-26] MEDS: METOCLOPRAMIDE HCL INJ/PF 10 MG/2 ML SDV IV SCH ×2 (09:20→12:38)
[2020-05-26] MEDS: PANTOPRAZOLE SODIUM 40 MG VIAL IV SCH (09:21)
[2020-05-26] MEDS: METOPROLOL SUCCINATE 25 MG TAB.SR.24H PO SCH (09:21)
[2020-05-26 12:23] VITALS: BP 91/63
--- NOTE | 2020-05-26 12:37 | PDOC DISCHARGE SUMMARY ---
Impression - Admit/DC Date/PCP Admission Date/Primary Care Provider: 05/22/20 02:39 Discharge Date: 05/26/20 - Discharge Diagnosis (1) Dysphagia Is this a current diagnosis for this admission?: Yes (2) Weight loss Is this a current diagnosis for this admission?: Yes (3) Chronic combined systolic and diastolic CHF (congestive heart failure) Is this a current diagnosis for this admission?: Yes (4) Moderate to severe mitral regurgitation Is this a current diagnosis for this admission?: Yes (5) Pleural effusion Is this a current diagnosis for this admission?: Yes (6) Malnutrition of moderate degree Is this a current diagnosis for this admission?: Yes (7) Weakness Is this a current diagnosis for this admission?: Yes (8) Elevated TSH Is this a current diagnosis for this admission?: Yes (9) Total bilirubin, elevated Is this a current diagnosis for this admission?: Yes - Assessment Summary: She appears to be euvolemic at this time. There is been some discussion about giving her a small dose of Imdur if she still having trouble eating. She says she still having some difficulty swallowing, but her blood pressure was too low today to consider putting her on a medication that would lower her blood pressure even further. I have encouraged her to try to take in as much nutrition as she can even if she has to do it slowly over a long period of time. Would also like to start an NLALELY inhibitor on her for her heart failure but again her blood pressure was too low to consider that today. There is also been some talk of her getting a LifeVest prior to discharge but if she is a self-pay I do not know if she is going to be able to get that here. - Additional Information Resuscitation Status: Full Code Discharge Diet: Cardiac Discharge Activity: Activity As Tolerated, Balance Activity w/Rest, Weigh Daily Referrals: TANNER VALLE MD [PEDIATRICS] - 06/07/20 2:00 pm (IF THE PATIENT WANTS AN EARLIER APPOINTMENT JUST CALL AND REQUEST. DOCTOR LEONARD WILL PUT IN A REFERRAL TO SEE DR. BAUTISTA.) MICHELET SANCHEZ MD [ACTIVE STAFF] - 06/05/20 11:30 am Prescriptions: Metoprolol Succinate [Toprol Xl 25 mg Tab.sr] 25 mg PO DAILY #30 tab.sr.24h Ondansetron [Zofran Odt 4 mg Tablet] 1 - 2 tab PO Q4HP PRN #10 tab.rapdis PRN Reason: Home Medications: Metoprolol Succinate [Toprol Xl 25 mg Tab.sr] 25 mg PO DAILY #30 tab.sr.24h 05/26/20 Ondansetron [Zofran Odt 4 mg Tablet] 1 - 2 tab PO Q4HP PRN #10 tab.rapdis 05/26/20 Pantoprazole Sodium [Protonix [address] Tablet] 20 mg PO NOW #30 tablet.dr 05/26/20 History of Present Illiness History of Present Illness: According to admitting provider: TAVO BETANCOURT is a 69 year old female who presented to the emergency room with a 4-month history of weight loss. The patient and her daughter admit that she began having sinus congestion and postnasal drainage with decreased sense of smell and taste in January of this year. With the decreased sense of smell and taste the patient has lost her appetite and has been gradually losing weight, 22 kg (~30% of her total body mass) over the last 3 months with gradually worsening generalized weakness. Over the last 4 days the patient has been worse with complaints of nausea when she tries to swallow any pills or oth er solids, claiming they get stuck and she gags until she has regurgitated them. She remains able to swallow water and other liquids without difficulty. She denies other associated or accompanying signs and symptoms. She denies prior similar episodes. She has not identified any aggravating or ameliorating factors for her weight loss. In the emergency room she was found to have mild hypokalemia, mild hyponatremia and mild hypomagnesemia as well as a mildly elevated TSH and a markedly elevated BNP. She was also noted to have moderate hyperbilirubinemia. A CT scan of the abdomen and pelvis demonstrated cardiomegaly with bilateral pleural effusions and a hydropic gallbladder with cholelithiasis. Patient was subsequently admitted to the hospital for further Hospital Course Hospital Course: 1) Dysphagia Qualifiers: Dysphagia type: esophageal phase Qualified Code(s): R13.10 - Dysphagia, unspecified Is this a current diagnosis for this admission?: Yes Plan: EGD shows findings suggestive of achalasia. Gastric biopsy negative for malignancy but does show chronic gastritis. Esophageal biopsy is benign. Unfortunately we cannot do manometry in the hospital to confirm achalasia. Patient is planned for follow-up with audiovisual librarian as outpatient but will need to follow-up with her primary care provider to get a referral first. (2) Weight loss Is this a current diagnosis for this admission?: Yes Plan: Secondary to dysphagia. CT chest, abdomen and pelvis have not revealed any occult masses. (3) Chronic combined systolic and diastolic CHF (congestive heart failure) Is this a current diagnosis for this admission?: Yes Plan: Echocardiogram comes back with dilated biventricular failure EF of 20 to 25% with grade 3 diastolic dysfunction and severe global hypokinesis and elevated RVSP and mod-severe MR. ?? if ischemic vs nonischemic cardiomyopathy. Potentially nonischemic causes in clude ?Chaga's disease vs severe MR vs protein caloric malnutrition etc. Plan is to pursue ischemic evaluation as outpatient Sent out T. cruzi IgG Despite elevated BNP, she clinically is euvolemic and not volume overloaded. She does not require any diuresis at this time. Started low-dose Toprol-XL during hospitalization. Unfortunately, her very soft blood pressures have not allowed us to initiate her on any ACEI/ARB/ARNI. LifeVest has been set up and patient is currently wearing the LifeVest. She has been set up for follow-up appointment with Dr. Michelet Sanchez as outpatient. (4) Moderate to severe mitral regurgitation Is this a current diagnosis for this admission?: Yes Plan: Cardiology consulted. Recommending ALICIA and further evaluation once patient's current appetite, functional status have improved and malnutrition has been addressed. Patient is set up for follow-up with Dr. Sanchez in the clinic. (5) Pleural effusion Is this a current diagnosis for this admission?: Yes Plan: Moderate effusion on the right side and very small effusion on the left. Likely secondary to chronic heart failure. So far oxygen saturation has been normal. No need for thoracentesis. Holding off on diuresis at this time as clinically dehydrated with very poor oral intake. Focus will be on initiating meds that optimize cardiac function. (6) Malnutrition of moderate degree Is this a current diagnosis for this admission?: Yes Secondary to esophageal dysphagia. Patient actually doing ok on Ensure supplements and managing pured diet. Contrary to documentation on clinical panel section, I confirmed with nurse that patient was able to eat some of her lunch and dinner yesterday and also patient confirms that she drank over 50% of the Ensure supplements given with each tray. She was also able to eat her pudding this morning. Patient has been advised to maintain a pured diet at home and to continue with Ensure Compact supplements at home as recommended by the dietitian. Physical Exam Vital Signs: Temp Pulse Resp BP Pulse Ox 97.3 F 95 20 92/65 L 97 05/26/20 11:41 05/26/20 11:41 05/26/20 11:41 05/26/20 11:41 05/26/20 11:41 Intake & Output 05/25/20 05/26/20 05/27/20 06:59 06:59 06:59 Intake Total 335 800 Output Total 0 Balance 335 800 Weight 56.1 kg 56.8 kg 56.8 kg General appearance: PRESENT: no acute distress, cooperative Neck exam: ABSENT: JVD Respiratory exam: PRESENT: unlabored Cardiovascular exam: PRESENT: +S1, +S2. ABSENT: tachycardia Neurological exam: PRESENT: alert, awake, oriented to person, oriented to place, oriented to time Psychiatric exam: ABSENT: agitated, anxious Results Laboratory Results: WBC 3.2 10^3/uL (4.0-10.5) L 05/24/20 07:53 RBC 4.14 10^6/uL (3.72-5.28) 05/24/20 07:53 Hgb 12.6 g/dL (12.0-15.5) 05/24/20 07:53 Hct 36.6 % (36.0-47.0) 05/24/20 07:53 MCV 89 fl (80-97) 05/24/20 07:53 MCH 30.5 pg (27.0-33.4) 05/24/20 07:53 MCHC 34.5 g/dL (32.0-36.0) 05/24/20 07:53 RDW 21.0 % (11.5-14.0) H 05/24/20 07:53 Plt Count 120 10^3/uL (150-450) L 05/24/20 07:53 Lymph % (Auto) 17.6 % (13-45) 05/21/20 20:17 [place] % (Auto) 9.9 % (3-13) 05/21/20 20:17 Eos % (Auto) 0.1 % (0-6) 05/21/20 20:17 Baso % (Auto) 0.3 % (0-2) 05/21/20 20:17 Absolute Neuts (auto) 3.6 10^3/uL (1.7-8.2) 05/21/20 20:17 Absolute Lymphs (auto) 0.9 10^3/uL (0.5-4.7) 05/21/20 20:17 Absolute Monos (auto) 0.5 10^3/uL (0.1-1.4) 05/21/20 20:17 Absolute Eos (auto) 0.0 10^3/uL (0.0-0.6) 05/21/20 20:17 Absolute Basos (auto) 0.0 10^3/uL (0.0-0.2) 05/21/20 20:17 Seg Neutrophils % 72.1 % (42-78) 05/21/20 20:17 PT 13.9 SEC (11.4-15.4) 05/21/20 20:17 INR 1.05 05/21/20 20:17 APTT 32.3 SEC (23.5-35.8) 05/21/20 20:17 Sodium 131.0 mmol/L (137-145) L 05/25/20 06:28 Potassium 4.3 mmol/L (3.6-5.0) 05/25/20 06:28 Chloride 91 mmol/L (98-107) L 05/25/20 06:28 Carbon Dioxide 30 mmol/L (22-30) 05/25/20 06:28 Anion Gap 10 (5-19) 05/25/20 06:28 BUN 14 mg/dL (7-20) 05/25/20 06:28 Creatinine 0.56 mg/dL (0.52-1.25) 05/25/20 06:28 Est GFR ( Amer) > 60 (>60) 05/25/20 06:28 Est GFR (MDRD) Non-Af > 60 (>60) 05/25/20 06:28 Glucose 118 mg/dL (75-110) H 05/25/20 06:28 Lactic Acid 2.0 mmol/L (0.7-2.1) 05/21/20 20:17 Calcium 9.3 mg/dL (8.4-10.2) 05/25/20 06:28 Magnesium 1.9 mg/dL (1.6-2.3) 05/25/20 06:28 Total Bilirubin 4.1 mg/dL (0.2-1.3) H 05/23/20 07:09 Direct Bilirubin 1.9 mg/dL (0.0-0.4) H 05/23/20 07:09 Neonat Total Bilirubin Not Reportable 05/23/20 07:09 Neonat Direct Bilirubin Not Reportable 05/23/20 07:09 Neonat Indirect Bili Not Reportable 05/23/20 07:09 AST 38 U/L (14-36) H 05/23/20 07:09 ALT 20 U/L (<35) 05/23/20 07:09 Alkaline Phosphatase 30 U/L (38-126) L 05/23/20 07:09 Ammonia < 8.7 umol/L (9-33) L 05/23/20 07:09 Troponin I 0.017 ng/mL 05/22/20 20:28 NT-Pro-B Natriuret Pep 8220 pg/mL (<125) H 05/21/20 20:17 Total Protein 6.1 g/dL (6.3-8.2) L 05/23/20 07:09 Albumin 3.2 g/dL (3.5-5.0) L 05/23/20 07:09 Amylase 48 U/L (30-110) 05/23/20 07:09 Lipase 469.1 U/L (23-300) H 05/21/20 20:17 TSH 5.28 uIU/mL (0.47-4.68) H 05/21/20 20:17 Free T4 2.15 ng/dL (0.78-2.19) 05/21/20 20:17 Free T3 pg/mL 2.88 pg/mL (2.77-5.27) 05/21/20 20:17 Urine Color GENTRY 05/21/20 21:55 Urine Appearance CLEAR 05/21/20 21:55 Urine pH 6.0 (5.0-9.0) 05/21/20 21:55 Ur Specific [place] 1.013 05/21/20 21:55 Urine Protein NEGATIVE mg/dL (NEGATIVE) 05/21/20 21:55 Urine Glucose (UA) NEGATIVE mg/dL (NEGATIVE) 05/21/20 21:55 Urine Ketones 80 mg/dL (NEGATIVE) H 05/21/20 21:55 Urine Blood NEGATIVE (NEGATIVE) 05/21/20 21:55 Urine Nitrite (Reflex) NEGATIVE (NEGATIVE) 05/21/20 21:55 Urine Bilirubin NEGATIVE (NEGATIVE) 05/21/20 21:55 Urine Urobilinogen 4.0 mg/dL (<2.0) H 05/21/20 21:55 Leukocyte Esterase Rfl TRACE (NEGATIVE) H 05/21/20 21:55 Urine RBC (Auto) 0 /HPF 05/21/20 21:55 Urine Bacteria (Auto) TRACE /HPF 05/21/20 21:55 Urine WBC (Reflex) 1 /HPF 05/21/20 21:55 Squamous Epi Cells Auto <1 /HPF 05/21/20 21:55 Urine Mucus (Auto) MANY /LPF 05/21/20 21:55 Urine Ascorbic Acid NEGATIVE (NEGATIVE) 05/21/20 21:55 COVID-19 Source Cancelled 05/22/20 15:40 COVID-19 (FREDERICK) Cancelled 05/22/20 15:40 SARS-CoV-2 (PCR) NEGATIVE (NEGATIVE) 05/22/20 15:40 05/21/20 05/22/20 20:17 20:28 Troponin I 0.019 0.017 NT-Pro-B Natriuret Pep 8220 H Impressions: Chest X-Ray 05/21/20 20:17 IMPRESSION: No acute abnormality as above. copyright 2010 [employer]- All Rights Reserved Abdomen/Pelvis CT 05/21/20 21:26 IMPRESSION: 1. Dilated/hydropic gallbladder with gallstones. There is a mild amount of pericholecystic fat stranding and a cannot exclude cholecystitis. Clinical correlation is recommended. Ultrasound or HIDA scan could be performed as clinically directed. 2. Bilateral pleural effusions and bibasilar atelectasis, greater on the right. Global cardiomegaly. Additional comments are as above. TECHNICAL DOCUMENTATION: Quality ID # 436: Final reports with documentation of one or more dose reduction techniques (e.g., Automated exposure control, adjustment of the mA and/or kV according to patient size, use of iterative reconstruction technique) copyright 2011 [employer]- All Rights Reserved Abdomen Ultrasound 05/21/20 23:49 IMPRESSION: Sludge and cholelithiasis with thickened gallbladder wall which may reflect acute or chronic cholecystitis Negative Reyna sign Right pleural effusion Probable focus of fatty infiltration along the falciform ligament Esophagus X-Ray 05/22/20 00:00 IMPRESSION: SMALL HIATAL HERNIA WITH GASTROESOPHAGEAL REFLUX. OTHERWISE UNR EMARKABLE STUDY. Chest CT 05/23/20 00:00 IMPRESSION: CARDIOMEGALY. BILATERAL PLEURAL EFFUSIONS, RIGHT GREATER THAN LEFT. COMPRESSIVE ATELECTASIS IN THE LUNG BASES. Plan Time Spent: Greater than 30 Minutes Stroke Is this a Stroke Patient?: No Acute Heart Failure Is this a Heart Failure Patient?: Yes Documentation of LVEF assessment?: Yes LVEF: LVEF Less Than or Equal to 35% Anticoagulant Therapy: N/A Discharged on Evidence-Based Beta Blockers: Yes Discharged on ARNI?: No-Document Contraindications Reason(s) not discharged on ARNI: Hypotension Discharged on ARB?: No-document contraindications Reason(s) not Discharged on ARB: Hypotenson Discharged on ACEI?: No, document contraindications Reason(s) not Discharged on ACEI: Hypotension For LVEF <35%, discharged on Aldosterone Antagonist?: No-document contraincations Reason(s) not discharged on Aldosterone Antagonist: Other - hypotension Aldosterone Antagonist Reason - Other: hypotension Follow-up Appointment scheduled within 7 days?: Yes
== END 2020-05-26 14:10 | disposition home or self-care (01) | DRG 392 ==
LOC: ER 19:08 → EH 05-22 02:39 → 5 05-22 04:06
PROVIDERS: ADMIT Emergency Medicine; ATTEND Internal Medicine
PROC: 0DB68ZX Excision of Stomach, Via Natural or Artificial Opening Endoscopic, Diagnostic (ICD-10-PCS; 2020-05-23)
PROC: 0DB58ZX Excision of Esophagus, Via Natural or Artificial Opening Endoscopic, Diagnostic (ICD-10-PCS; principal; 2020-05-23 11:00)
DX: R13.10 Dysphagia, unspecified (principal); E44.0 Moderate protein-calorie malnutrition; I42.9 Cardiomyopathy, unspecified; E87.1 Hypo-osmolality and hyponatremia; K80.10 Calculus of gallbladder with chronic cholecystitis without obstruction; I50.42 Chronic combined systolic (congestive) and diastolic (congestive) heart failure; Z68.1 Body mass index [BMI] 19.9 or less, adult; K29.50 Unspecified chronic gastritis without bleeding; I34.0 Nonrheumatic mitral (valve) insufficiency; E86.0 Dehydration; E87.6 Hypokalemia; E83.42 Hypomagnesemia; K44.9 Diaphragmatic hernia without obstruction or gangrene; R63.4 Abnormal weight loss; E80.6 Other disorders of bilirubin metabolism; R63.0 Anorexia; R53.1 Weakness; R94.6 Abnormal results of thyroid function studies; Z11.59 Encounter for screening for other viral diseases; Z87.891 Personal history of nicotine dependence; Z79.899 Other long term (current) drug therapy; Z88.0 Allergy status to penicillin
CPT/HCPCS: 00731; 36415; 43239; 71045; 71260; 74177; 74220; 76705; 80048; 80053; 81001; 82140; 82150; 83605; 83690; 83735; 83880; 84439; 84443; 84481; 84484; 85025; 85027; 85610; 85730; 87040; 87086; 87635; 88305; 88342; 93005; 93010; 93306; 94799; 96361; 96374; 96375; 96376; 99285; C9113; C9803; J1644; J1956; J2405; J2704; J2765; J3475; J3480; J3490; J7040